=== PATIENT | female | born 1950 | race Caucasian/White ===

== ENCOUNTER 2018-03-11 14:35 | Inpatient (IN) | payer OTHER ==
[~2018-03-11] VITALS: Ht 162.6 cm; Wt 61.3 kg
[2018-03-11] MEDS ORDERED: ASPIRIN 325 MG TAB PO ONE (15:30)
[2018-03-11 15:32] LABS: BASOPHILS # (AUTO) 0.1 (0.0-0.1); BASOPHILS % 0.6 % (0.0-1.0); EOSINOPHILS # (AUTO) 0.1 (0.0-0.4); EOSINOPHILS % 0.8 % (0.0-6.0); HEMATOCRIT 41.1 % (34.2-44.1); HEMOGLOBIN 13.9 g/dL (12.0-16.0); LYMPHOCYTES # (AUTO) 2.6 (1.0-3.2); LYMPHOCYTES % 29.6 % (18.0-39.1); MEAN CORPUSCULAR HEMOGLOBIN 27.9 pg (28-32); MEAN CORPUSCULAR HGB CONC 33.8 g/dL (31-35); MEAN CORPUSCULAR VOLUME 82.4 fL (81-99); MONOCYTES # (AUTO) 0.5 (0.2-0.8); MONOCYTES % 6.1 % (4.4-11.3); NEUTROPHILS # (AUTO) 5.5 (2.1-6.9); NEUTROPHILS % 62.7 % (38.7-80.0); PLATELET COUNT 260 x10e3/uL (140-360); RED BLOOD COUNT 4.99 x10e6/uL (3.6-5.1); RED CELL DISTRIBUTION WIDTH 13.2 % (11.7-14.4)
[2018-03-11 15:44] LABS: ALBUMIN 3.3 g/dL (3.5-5.0); ALBUMIN/GLOBULIN RATIO 0.9 (0.8-2.0); ANION GAP 15.7 mmol/L (8-16); CALCIUM 10.2 mg/dL (8.4-10.2); CHOL/HDL RATIO 7.1 (3.0-3.6); CREATININE, SERUM 1.2 mg/dL (0.57-1.11); POTASSIUM 4.7 mmol/L (3.5-5.1)
--- NOTE | 2018-03-11 16:02 | Diagnostic Imaging Report ---
PROCEDURE: A single AP view of the chest. COMPARISON: None. INDICATIONS: LEFT SIDE CHEST PAIN FINDINGS: Lines/tubes: None. Lungs: The lungs are well inflated and clear. There is no evidence of pneumonia or pulmonary edema. Pleura: There is no pleural effusion or pneumothorax. Heart and mediastinum: Cardiac silhouette is unremarkable. Pulmonary vasculature is normal. Bones: No acute bony abnormality. IMPRESSION: 1. No acute cardiopulmonary abnormalities. Chilo Hinson M.D. Dictated by: Chilo Hinson M.D. on 03/11/2018 at 16:06 Electronically approved by: Chilo Hinson M.D. on 03/11/2018 at 16:06
[2018-03-11] MEDS ORDERED: SODIUM CHLORIDE 0.9% 1000ML 1,000 ML IV ONE (16:30)
[2018-03-11] MEDS ORDERED: INSULIN REGULAR, HUMAN 100 UNIT/1 ML 3ML VIAL IV ONE (16:30)
[2018-03-11] MEDS ORDERED: KETOROLAC TROMETHAMINE 30 MG/ML VIAL IV STA (16:31)
[2018-03-11] MEDS ORDERED: DIAZEPAM INJ 5 MG/ML 2 ML IV ONE (16:45)
[2018-03-11] MEDS ORDERED: ENALAPRILAT IV INJ 1.25 MG/ML VIAL IV STA (17:29)
[2018-03-11] MEDS ORDERED: ENALAPRILAT IV INJ 1.25 MG/ML VIAL ONE ×2 (17:40→18:18)
[2018-03-11] MEDS ORDERED: DEXTROSE 50% SYRINGE 50 ML IV PRN (17:45)
[2018-03-11] MEDS ORDERED: ONDANSETRON HCL INJ 2 MG/ML VIAL IV PRN (17:45)
[2018-03-11] MEDS ORDERED: SODIUM CHLORIDE FLUSH 10 ML SYR INJ PRN (17:45)
[2018-03-11] MEDS ORDERED: DIAZEPAM 2 MG TAB PO ONE (17:45)
[2018-03-11] MEDS ORDERED: ASPIRIN 81 MG CHEW TAB PO ONE (17:45)
[2018-03-11] MEDS ORDERED: DIAZEPAM 5 MG TAB PO SCH (17:45)
[2018-03-11] MEDS ORDERED: MORPHINE SULFATE 2 MG/ML SYR IV PRN (18:00)
[2018-03-11] MEDS ORDERED: LABETALOL HCL 5 MG/ML 20ML VIAL IV ONE (18:00)
[2018-03-11] MEDS: FAMOTIDINE 20 MG/2 ML VIAL IV SCH (18:24)
[2018-03-11] MEDS: FAMOTIDINE 20 MG TAB PO SCH (18:24)
--- NOTE | 2018-03-11 18:28 | Diagnostic Imaging Report ---
PROCEDURE:CT ANGIOGRAPHY CHEST WITHOUT AND WITH CONTRAST COMPARISON:None. INDICATIONS:RULE OUT DISSECTION, CHEST AND BACK PAIN TECHNIQUE:Multidetector CT scanning of the chest was performed from the level of the thoracic inlet to the upper abdomen before and after intravenous administration of 100 cc of Isovue 370. No oral contrast was given. Coronal and sagittal multiplanar reformations were obtained. DISCUSSION: Chest:3-4 mm pulmonary nodule in the left upper lobe (series 7, image 13, and sagittal image 85). 2 mm pulmonary nodule in the lateral left upper lobe (sagittal image 89). No other pulmonary nodules. No masses or consolidation. Linear opacities in the lateral left lower lobe, likely representing subsegmental atelectasis or scarring (series 7, image 41). Thyroid is unremarkable. Heart size is normal. No pericardial effusion. Minimal atherosclerotic calcification of the coronary arteries and thoracic aortic arch. The left vertebral artery has a separate origin from the aorta. Otherwise, normal aortic arch branching pattern. Lymph nodes: A borderline enlarged right upper paratracheal lymph node measuring 1.0 cm in short axis (series 2, image 19) has a normal fatty hilum. No axillary, mediastinal, or hilar adenopathy Aorta and proximal branches: The thoracic aorta is normal without evidence of aneurysm or dissection. There is no evidence of intramural or periaortic hematoma. There is preservation of the sinotubular junction. The visualized abdominal aorta is normal. The celiac trunk is patent. Measurements of the aorta are as follows: 2.7 cm at the level of the aortic root, 3.0 cm in the mid ascending aorta, 2.6 cm in the mid aortic arch, 2.5 cm in the proximal descending aorta, 2.3 cm in the mid descending aorta, 2.1 cm at the level of the diaphragmatic hiatus, 2.1 cm at the level of the celiac trunk. Abdomen: Visualized portions of the abdomen showed no abnormalities in the liver, spleen, pancreas. 5 mm calcification in the superior pole of the left kidney (series 2, image 55). 1.1 x 0.9 cm low density nodule in the anterior limb of the left adrenal gland (series 2, image 57), with the measured density of less than 10 HU on noncontrast exam. Bones and soft tissues: No aggressive lytic lesions. Degenerative changes are present in the thoracic spine. Soft tissues are unremarkable. CONCLUSION: 1. Essentially unremarkable CT angiogram of the chest with and without contrast. No evidence of dissection or aneurysmal dilation. 2. 2 and 3-4 mm pulmonary nodules in the left upper lobe. This is a low risk patient, no further followup is indicated per [employer] 2017 guidelines. 3. 5 mm calcification in the superior pole of the left kidney may represent a cortical calcification or nonobstructing calculus. 4. 1.1 cm left adrenal benign, lipid rich adenoma. No further diagnostic or followup imaging is indicated. Chilo Hinson M.D. Dictated by: Chilo Hinson M.D. on 03/11/2018 at 18:33 Electronically approved by: Chilo Hinson M.D. on 03/11/2018 at 18:33
[2018-03-11] MEDS ORDERED: CLONIDINE HCL 0.2 MG TAB PO ONE (18:45)
[2018-03-11] MEDS ORDERED: CLONIDINE HCL0.2 MG PO (18:57)
[2018-03-11] MEDS ORDERED: ESCITALOPRAM OX10 MG (18:57)
[2018-03-11] MEDS ORDERED: ASPIRIN EC81 MG PO (18:57)
[2018-03-11] MEDS ORDERED: METFORMIN HCL500 M1 PO (18:57)
[2018-03-11] MEDS ORDERED: ATORVASTATIN CA80 MG PO (18:57)
[2018-03-11] MEDS ORDERED: LISINOPRIL40 MG (18:57)
[2018-03-11] MEDS ORDERED: BACLOFEN10 MG PO (18:57)
[2018-03-11] MEDS ORDERED: ESCITALOPRAM OX20 MG PO (18:57)
[2018-03-11] MEDS ORDERED: FLUTICASONE PRO16 GM INH (18:57)
[2018-03-11] MEDS ORDERED: TEMAZEPAM15 MG PO (18:57)
[2018-03-11] MEDS ORDERED: GABAPENTIN600 MG PO (18:57)
[2018-03-11] MEDS ORDERED: CLONIDINE HCL 0.1 MG TAB PO PRN (19:15)
[2018-03-11] MEDS ORDERED: CLONIDINE HCL 0.2 MG TAB PO PRN (19:30)
[2018-03-11] MEDS: INSULIN REGULAR, HUMAN 100 UNIT/1 ML 3ML VIAL SQ SCH (21:00)
[2018-03-11] MEDS ORDERED: NIFEDIPINE 10 MG CAP PO STA (21:10)
[2018-03-11] MEDS ORDERED: NIFEDIPINE CR 30 MG TAB PO SCH (21:30)
[2018-03-11] MEDS: SIMVASTATIN 40 MG TAB PO SCH (22:26)
[2018-03-11] MEDS ORDERED: IOPAMIDOL 370 MG/ML 200 ML INFUS..BTL INJ ONE (22:52)
[2018-03-11] MEDS ORDERED: SODIUM CHLORIDE 0.9% 100 ML ONE (22:53)
[2018-03-11] MEDS ORDERED: NITROGLYCERIN 2% OINT 1 GM PKT TOP ONE (23:00)
[2018-03-12] VITALS (8 sets, daily range): BP systolic 146–159; BP diastolic 65–70
[2018-03-12 02:03] LABS: CREATINE KINASE MB 0.7 ng/mL (0-5.0)
[2018-03-12] MEDS: FAMOTIDINE 20 MG TAB PO SCH ×2 (05:44→16:45)
[2018-03-12] MEDS: FAMOTIDINE 20 MG/2 ML VIAL IV SCH (05:44)
[2018-03-12 05:54] LABS: BASOPHILS % 0.6 % (0.0-1.0); EOSINOPHILS # (AUTO) 0.1 (0.0-0.4); EOSINOPHILS % 1.9 % (0.0-6.0); HEMATOCRIT 37.5 % (34.2-44.1); HEMOGLOBIN 12.3 g/dL (12.0-16.0); LYMPHOCYTES # (AUTO) 3.3 (1.0-3.2); LYMPHOCYTES % 45.1 % (18.0-39.1); MEAN CORPUSCULAR HGB CONC 32.8 g/dL (31-35); MEAN CORPUSCULAR VOLUME 85.4 fL (81-99); MONOCYTES # (AUTO) 0.5 (0.2-0.8); MONOCYTES % 7.2 % (4.4-11.3); NEUTROPHILS # (AUTO) 3.3 (2.1-6.9); NEUTROPHILS % 44.9 % (38.7-80.0); PLATELET COUNT 213 x10e3/uL (140-360); RED BLOOD COUNT 4.39 x10e6/uL (3.6-5.1); RED CELL DISTRIBUTION WIDTH 13.2 % (11.7-14.4)
[2018-03-12] MEDS ORDERED: ZESTRIL10 MG PO (06:08)
[2018-03-12 06:15] LABS: CREATINE KINASE MB 0.8 ng/mL (0-5.0)
[2018-03-12 06:33] LABS: ANION GAP 11.5 mmol/L (8-16); CALCIUM 9.2 mg/dL (8.4-10.2); CREATININE, SERUM 1.04 mg/dL (0.57-1.11); POTASSIUM 4.5 mmol/L (3.5-5.1)
--- NOTE | 2018-03-12 06:36 | Diagnostic Imaging Report ---
CHEST SINGLE (PORTABLE), 03/12/2018 7:00 AM Technique: CHEST SINGLE (PORTABLE) Comparison: None available. Clinical history: Chest pain Findings: Probable left lung calcified granulomas. Otherwise unremarkable portable appearance of the heart, mediastinum, lungs and pleural spaces. Impression: 1. Lines/Tubes: None 2. No acute abnormality. Signed by: Dr Aimee Ibrahim MD on 03/12/2018 6:33 AM
[2018-03-12] MEDS: INSULIN REGULAR, HUMAN 100 UNIT/1 ML 3ML VIAL SQ SCH ×4 (08:00→21:00)
[2018-03-12] MEDS: ASPIRIN 81 MG ENTERIC COATED PO SCH (08:00)
[2018-03-12] MEDS ORDERED: BACLOFEN 10 MG TAB PO PRN (08:45)
[2018-03-12] MEDS ORDERED: MORPHINE SULFATE INJ 4 MG/ML INJ IV PRN (08:45)
[2018-03-12] MEDS ORDERED: NITROGLYCERIN 0.2 MG/HR PATCH TOP SCH (09:00)
[2018-03-12] MEDS: METOPROLOL TARTRATE 50 MG TAB PO SCH ×2 (09:57→16:45)
[2018-03-12] MEDS: GLIPIZIDE 5 MG TAB ER PO SCH (09:57)
[2018-03-12] MEDS: ESCITALOPRAM OXALATE 10 MG TAB PO SCH (09:57)
[2018-03-12] MEDS: LISINOPRIL 10 MG TAB PO SCH ×2 (09:58→16:45)
[2018-03-12] MEDS: GABAPENTIN 300 MG CAP PO SCH ×2 (09:58→16:45)
[2018-03-12] MEDS: NIFEDIPINE CR 30 MG TAB PO SCH (09:58)
[2018-03-12] MEDS ORDERED: ARTIFICIAL TEARS (OPTH) 15 ML BTL OP PRN (10:00)
[2018-03-12] MEDS: ACETAMINOPHEN 325 MG TAB PO PRN (12:19)
[2018-03-12] MEDS ORDERED: REGADENOSON 0.4 MG/5 ML SYR IV ONE (12:30)
[2018-03-12] MEDS ORDERED: TEMAZEPAM 15 MG CAP PO SCH (21:00)
[2018-03-12] MEDS ORDERED: ATORVASTATIN 40 MG TAB PO SCH (21:00)
--- NOTE | 2018-03-12 21:04 | Consultation ---
DATE OF CONSULTATION: March 12, 2018 CARDIOLOGY CONSULT NOTE REASON FOR CONSULTATION: Chest pain. CHIEF COMPLAINT: Chest pain. HPI: Patient is a 67-year-old white female with history of diabetes, hypertension, hyperlipidemia, who presents with 2-week history of left-sided chest pain radiating to her left shoulder and back. Pain is intermittent without any exacerbating or relieving factors, feels like a pressure and squeezing in her chest without associated shortness of breath, nausea, vomiting or diaphoresis. Pain is not associated with exertion and is not relieved by rest. Patient has no previous history of cardiac issues including CAD. Patient is never a smoker, does not drink or use drugs. PAST MEDICAL HISTORY: Hypertension, hyperlipidemia, diabetes, osteoarthritis, fibromyalgia. REVIEW OF SYSTEMS: A 10-point complete review of system was performed then was negative other than as mentioned in the HPI. FAMILY HISTORY: Patient's mother had history of bypass surgery in her 60s. SOCIAL HISTORY: Patient does not smoke, drink or use drugs. EXAM VITALS: Temperature 97.7, heart rate 68, respiratory rate 18, blood pressure 152/67, satting 96% on room air. EYES: Conjunctivae clear. EARS, NOSE, MOUTH, AND THROAT: Normal mucosa. No pallor or bleeding. NECK: No jugular venous distention. MSK: Normal muscle tone and strength. No atrophy or abnormal movements. EXTREMITIES: No clubbing or cyanosis. No venostasis changes or ulcers. GENERAL: Well-developed, well-nourished white female. CARDIOVASCULAR: PMI nondisplaced. Regular S1 and S2. No murmur, rubs or gallop. Normal carotid pulses. Palpable femoral pulses. Palpable pedal pulses. No peripheral edema or varicosities. RESPIRATORY: No respiratory distress. Clear to auscultation bilaterally. ABDOMEN: Soft, nontender, nondistended. No masses, no hepatosplenomegaly. NEURO/PSYCH: Alert and oriented to person, place, and time. Normal affect. MEDICATIONS 1. Metoprolol tartrate 50 mg twice a day. 2. Gabapentin 600 mg twice a day. 3. Lisinopril 10 mg twice a day. 4. Famotidine 20 mg q.12 h. 5. Nifedipine 30 mg daily. 6. Glipizide 5 mg daily. 7. Lexapro 20 mg daily. 8. Aspirin 81 mg daily. 9. Simvastatin 40 mg at bedtime. 10. Hydralazine 25 mg q.4 h p.r.n. for elevated blood pressure. 11. Nitroglycerin sublingual p.r.n. LABS: All lab data reviewed. Hemoglobin 13.9. Troponins remain negative. Elevated blood glucoses as high as 284. BNP is 91.5. IMAGING: Chest x-ray without any significant cardiopulmonary abnormalities. EKG: Normal sinus rhythm. TELEMETRY: Normal sinus rhythm. No significant arrhythmias. CARDIAC STUDIES: Myocardial perfusion imaging performed earlier today reviewed shows no significant perfusion defect and a normal LV function. ASSESSMENT AND PLAN 1. Chest pain. 2. Uncontrolled hypertension. PLAN: Patient's chest pain has both typical and atypical features. Given her risk factors, we decided to risk stratify with nuclear stress test. Nuclear stress test shows normal perfusion of the LV myocardium with normal LV function. Patient already ruled out for acute HI with serial negative troponins and normal EKG. Given above findings, patient is okay to be discharged home from a cardiovascular standpoint. She is to continue her home blood pressure medicines as described above. She needs better blood pressure control as an outpatient, and desired, she can call our office and make an appointment for followup after discharge. Thank you for this consult. Job#: [id number]
[2018-03-12] MEDS: SIMVASTATIN 40 MG TAB PO SCH (21:30)
[2018-03-13] VITALS (7 sets, daily range): BP systolic 150–207; BP diastolic 72–90
[2018-03-13] MEDS: ACETAMINOPHEN 325 MG TAB PO PRN ×2 (05:00→12:24)
[2018-03-13] MEDS: HYDRALAZINE HCL 25 MG TAB PO PRN ×2 (05:06→09:54)
[2018-03-13] MEDS: FAMOTIDINE 20 MG TAB PO SCH (05:29)
[2018-03-13] MEDS: GABAPENTIN 300 MG CAP PO SCH (07:45)
[2018-03-13] MEDS: ASPIRIN 81 MG ENTERIC COATED PO SCH (07:45)
[2018-03-13] MEDS: LISINOPRIL 10 MG TAB PO SCH (07:45)
[2018-03-13] MEDS: ESCITALOPRAM OXALATE 10 MG TAB PO SCH (07:45)
[2018-03-13] MEDS: GLIPIZIDE 5 MG TAB ER PO SCH (07:45)
[2018-03-13] MEDS: METOPROLOL TARTRATE 50 MG TAB PO SCH (07:45)
[2018-03-13] MEDS: NIFEDIPINE CR 30 MG TAB PO SCH (07:45)
[2018-03-13] MEDS: INSULIN REGULAR, HUMAN 100 UNIT/1 ML 3ML VIAL SQ SCH ×2 (07:45→12:00)
[2018-03-13] MEDS ORDERED: ALPRAZOLAM 0.25 MG TAB PO ONE (09:00)
--- NOTE | 2018-03-13 09:11 | Discharge Summary ---
FILM CLEANER: Dr. Huan Sotelo FILM CLEANER: Dr. Linda Rodriguez FINAL DIAGNOSES 1. Hypertensive crisis with headaches. 2. Chest pain. Patient had a negative stress test. Negative CTA of the chest. 3. Anxiety disorder. Medications on discharge and instructions as follows: 1. Discontinue lisinopril 10 mg and increase it to lisinopril 20 mg twice a day. 2. Stop clonidine. 3. Add metoprolol tartrate 50 mg twice a day. 4. Nifedipine XL 30 mg at bedtime. 5. Xanax 0.25 mg q.6 h. p.r.n. for anxiety. SUMMARY: A 67-year-old female came in with chest pain and hypertensive crisis. Systolic blood pressure greater than 210-220. Patient was on clonidine with rebound hypertension. Patient was also very anxious. Chest pain is atypical. Patient initiated on medication adjustment. Blood pressure much improved. Patient is stable now. Chest pain resolved. She is anxious. Blood pressure remained elevated with anxiety, but overall stable from previous readings. The patient did have a negative stress test. CTA of the chest shows some insignificant pulmonary nodules. No further followup recommended. The patient is stable. She will go home with the following instructions as the above. She will see Dr. Sotelo within a week for repeat checking of her blood pressure. The patient is stable. Resume home medications. with the changes as mentioned above. Job#: [id number] SYLVAIN
[2018-03-13] MEDS ORDERED: HYDRALAZINE HCL 20 MG/ML VIAL IV ONE (10:00)
--- NOTE | 2018-03-13 10:14 | Progress Note ---
DATE: CARDIOLOGY PROGRESS NOTE SUBJECTIVE: Patient complains of a headache and denies shortness of breath, chest pain or palpitations. Blood pressure quite elevated this morning. OBJECTIVE VITAL SIGNS: Temperature 98.4, pulse 88, respiratory rate 18, blood pressure 207/90, oxygen saturation 96% on room air. CARDIOVASCULAR MEDICATIONS 1. Nifedipine 30 p.o. daily. 2. Metoprolol 50 mg p.o. b.i.d. 3. Lisinopril 10 mg p.o. b.i.d. 4. Aspirin 81 p.o. daily. 5. Atorvastatin 80 p.o. at night. LABS: No new labs today. PHYSICAL EXAMINATION GENERAL: Alert and oriented times 3. Resting comfortably in bed. Does not appear to be in any acute distress. LUNGS: Clear to auscultation throughout. No wheezing. No rhonchi or crackles noted. CARDIOVASCULAR: Regular rate and rhythm. ABDOMEN: Soft and nontender. EXTREMITIES: No edema. Two plus pedal pulses. ASSESSMENT AND PLAN 1. Atypical chest pain, resolved now. 2. Uncontrolled hypertension. 3. Anxiety and nervousness. PLAN: Initiate antianxiety and antidepressant. Up-titrate antihypertensive today. IV option given. Hold discharge for now until blood pressure is a lot better controlled. Patient to follow up with outpatient quality tester with [facility] in the next week. Stress test completed yesterday shows normal perfusion of the left myocardium with normal LV function. Cardiac enzymes have ruled out acute MN. Will continue to follow this patient very closely. DICTATED BY ODESSA KO NP Job#: [id number] SYLVAIN
[2018-03-13] MEDS ORDERED: NIFEDIPINE CR 30 MG TAB PO SCH (10:30)
[2018-03-13] MEDS ORDERED: LISINOPRIL 20 MG TAB PO SCH (10:30)
[2018-03-13] MEDS ORDERED: LISINOPRIL2.5 MG PO (12:38)
[2018-03-13] MEDS ORDERED: NIFEDIPINE ER30 M1 PO (12:39)
[2018-03-13] MEDS ORDERED: METOPROLOL TART50 MG PO (12:39)
[2018-03-13] MEDS ORDERED: XANAX0.25 MG PO (12:40)
[2018-03-13] MEDS ORDERED: LISINOPRIL 10 MG TAB PO SCH (17:00)
[2018-03-14] MEDS ORDERED: NIFEDIPINE CR 30 MG TAB PO SCH (09:00)
== END 2018-03-13 13:05 | disposition home or self-care (01) | DRG 305 ==
LOC: FSED 14:35 → ERHOLD 17:36 → MED/SURG 03-12 01:17
PROVIDERS: ADMIT Internal Medicine; ATTEND Internal Medicine
DX: I16.9 Hypertensive crisis, unspecified (principal); I10 Essential (primary) hypertension; E11.65 Type 2 diabetes mellitus with hyperglycemia; E78.5 Hyperlipidemia, unspecified; Z85.038 Personal history of other malignant neoplasm of large intestine; R07.89 Other chest pain; F41.9 Anxiety disorder, unspecified; R45.0 Nervousness; R51 Headache
CPT/HCPCS: 36415; 71045; 71275; 78452; 80048; 80053; 80061; 82550; 82553; 82948; 83036; 83880; 84443; 84484; 85025; 93005; 93017; 99284; A9502; J1885; J2270; J2405; J3360; J7030; J7050; Q9967

== ENCOUNTER 2018-08-13 21:49 | Inpatient (IN) | payer OTHER ==
[~2018-08-13] VITALS: Ht 162.6 cm; Wt 59.5 kg
[~2018-08-13 21:49] MED LIST: ASPIRIN EC81 MG PO; ATORVASTATIN CA80 MG PO; BACLOFEN10 MG PO; CLONIDINE HCL0.2 MG PO; ESCITALOPRAM OX10 MG; ESCITALOPRAM OX20 MG PO; FLUTICASONE PRO16 GM INH; GABAPENTIN600 MG PO; LISINOPRIL2.5 MG PO; LISINOPRIL40 MG; METFORMIN HCL500 M1 PO; METOPROLOL TART50 MG PO; NIFEDIPINE ER30 M1 PO; TEMAZEPAM15 MG PO; XANAX0.25 MG PO; ZESTRIL10 MG PO
--- OUTSIDE RECORDS SUMMARY | 2018-08-13 21:51 | XMS REPORT | Clinical Summary ---
Author Author MAGDY [facility] Address Unknown Phone Unavailable Care Team Providers Care Orange Peel Operator Name Role Phone Sharpless PCP Allergies No Known Allergies Medications End Date Status Medication Sig Dispensed Refills Start Date Active aspirin-calcium carbonate Take 81 mg by 0 81 mg-300 mg calcium(777 mouth. 8 mg) Tab Active atorvastatin (LIPITOR) 80 80 mg. 0 MG tablet 8 Active escitalopram oxalate Take 20 mg by 0 (LEXAPRO) 20 MG tablet mouth. 8 Active gabapentin (NEURONTIN) TAKE ONE 0 600 MG tablet TABLET BY 8 MOUTH THREE TIMES DAILY FOR 7 DAYS, AND THEN ONE TABLET 4 TIMES DAILY. Active insulin lispro Inject 20 0 protamine-insulin lispro Units 8 (HUMALOG 75-25) 100 subcutaneousl unit/mL (75-25) Susp y. injection Active lidocaine HCl 4 % Crea Apply small 0 amount to 8 affected area daily as needed Active lisinopril Take 40 mg by 0 (PRINIVIL,ZESTRIL) 40 MG mouth. 8 tablet Active meclizine (ANTIVERT) 12.5 Take 12.5 mg 0 mg tablet by mouth. 6 Active metFORMIN (GLUCOPHAGE-XR) Take 500 mg 0 500 MG 24 hr by mouth 2 8 tabletIndications: type 2 (two) times diabetes mellitus daily . Active ondansetron (ZOFRAN) 4 MG Take 4 mg by 0 tablet mouth. 8 Active temazepam (RESTORIL) 15 Take 15 mg by 0 mg capsule mouth. 8 03/21/2019 Active cloNIDine HCl (CATAPRES) Take 1 tablet 60 tablet 1 0.2 MG tablet (0.2 mg 8 total) by mouth 2 (two) times daily. 03/21/2019 Active metoprolol (LOPRESSOR) 25 Take 1 tablet 60 tablet 1 MG tablet (25 mg total) 8 by mouth 2 (two) times daily. 04/20/2018 lidocaine (LIDODERM) 5 % Place 1 patch 30 patch 0 patch onto the skin 8 daily for 30 days Remove & Discard patch within 12 hours or as directed by . Active Problems Problem Noted Date Chest pain, unspecified type 03/19/2018 Encounters Care Team Description Date Type Specialty 03/20/2018 Orders Only General Internal Medicine Dennis Lewis MD Rivera, Carlos Roberto, MD Chest pain, unspecified type (Primary Dx) 03/19/2018 Emergency General Internal Medicine - 03/21/2018 after 08/12/2017 Social History Date Tobacco Use Types Packs/Day Years Used Never Smoker Smokeless Tobacco: Never Used Alcohol Use Drinks/Week oz/Week Comments No Sex Assigned at Date Recorded Not on file Industry Job Start Date Occupation Not on file Not on file Not on file Travel End Travel History Travel Start No recent travel history available. Last Filed Vital Signs Time Taken Vital Sign Reading 03/21/2018 11:27 AM CDT Blood Pressure 136/63 03/21/2018 11:27 AM CDT Pulse 70 03/21/2018 11:27 AM CDT Temperature 36.3 C (97.3 F) 03/21/2018 11:27 AM CDT Respiratory Rate 18 03/21/2018 11:27 AM CDT Oxygen Saturation 97% - Inhaled Oxygen - Concentration 03/21/2018 6:00 AM CDT Weight 58.2 kg (128 lb 6 oz) 03/20/2018 1:29 AM CDT Height 162.6 cm (5' 4") 03/21/2018 6:00 AM CDT Body Mass Index 22.04 Plan of Treatment Not on file Procedures Comments Procedure Name Priority Date/Time Associated Diagnosis RHYTHM STRIP - SCAN 03/23/2018 12:00 PM CDT POCT-GLUCOSE METER Routine 03/21/2018 12:39 PM CDT POCT-GLUCOSE METER Routine 03/21/2018 6:48 AM CDT ECG 12-LEAD Routine 03/21/2018 6:32 AM CDT Procedure Note - Interface, External Ris In - 03/21/2018 6:33 AM CDT Ventricula r Rate 68 BPM Atrial Rate 68 BPM P-R Interval 158 ms QRS Duration 94 ms Q-T Interval 438 ms QTC Calculatio n(Bazett) 465 ms P Hilbert 67 degrees R Hilbert 36 degrees T Hilbert 106 degrees Normal sinus rhythm T wave abnormalit y, consider lateral ischemia Abnormal ECG When compared with ECG of 8 06:32, No significan t change was found ECG 12-LEAD Routine 03/21/2018 6:32 AM CDT ECG 12-LEAD Routine 03/21/2018 6:32 AM CDT Procedure Note - Interface, External Ris In - 03/21/2018 6:33 AM CDT Ventricula r Rate 68 BPM Atrial Rate 68 BPM P-R Interval 158 ms QRS Duration 90 ms Q-T Interval 442 ms QTC Calculatio n(Bazett) 469 ms P Hilbert 70 degrees R Hilbert 62 degrees T Hilbert 103 degrees Normal sinus rhythm T wave abnormalit y, consider lateral ischemia Abnormal ECG When compared with ECG of 8 06:26, ST elevation now present in Inferior leads MAGNESIUM Routine 03/21/2018 5:17 AM CDT BASIC METABOLIC PANEL (7) Routine 03/21/2018 5:17 AM CDT POCT-GLUCOSE METER Routine 03/20/2018 8:21 PM CDT POCT-GLUCOSE METER Routine 03/20/2018 5:46 PM CDT TROPONIN I Routine 03/20/2018 4:05 PM CDT POCT-GLUCOSE METER Routine 03/20/2018 11:29 AM CDT POCT-GLUCOSE METER Routine 03/20/2018 7:35 AM CDT ECG 12-LEAD Routine 03/20/2018 6:26 AM CDT Procedure Note - Interface, External Ris In - 03/20/2018 6:27 AM CDT Ventricula r Rate 89 BPM Atrial Rate 89 BPM P-R Interval 148 ms QRS Duration 92 ms Q-T Interval 390 ms QTC Calculatio n(Bazett) 474 ms P Hilbert 72 degrees R Hilbert 86 degrees T Hilbert 87 degrees Normal sinus rhythm Nonspecifi c ST abnormalit y Abnormal ECG When compared with ECG of 06:26, No significan t change was found ECG 12-LEAD Routine 03/20/2018 6:26 AM CDT Procedure Note - Interface, External Ris In - 03/20/2018 6:27 AM CDT Ventricula r Rate 89 BPM Atrial Rate 89 BPM P-R Interval 146 ms QRS Duration 92 ms Q-T Interval 404 ms QTC Calculatio n(Bazett) 491 ms P Hilbert 74 degrees R Hilbert 81 degrees T Hilbert 119 degrees Normal sinus rhythm Right atrial enlargemen t Nonspecifi c ST and T wave abnormalit y Prolonged QT Abnormal ECG No previous ECGs available ECG 12-LEAD STAT 03/20/2018 6:26 AM CDT URINALYSIS W/ MICROSCOPIC Routine 03/20/2018 6:14 AM CDT CBC W/PLT COUNT & AUTO Routine 03/20/2018 DIFFERENTIAL 5:51 AM CDT CBC W/PLT COUNT & AUTO Routine 03/20/2018 DIFFERENTIAL 5:51 AM CDT HEPATIC FUNCTION PANEL Routine 03/20/2018 5:51 AM CDT PROTHROMBIN TIME/INR Routine 03/20/2018 5:51 AM CDT MAGNESIUM Routine 03/20/2018 5:51 AM CDT LIPID PANEL Routine 03/20/2018 5:51 AM CDT BASIC METABOLIC PANEL (7) Routine 03/20/2018 5:51 AM CDT POCT-GLUCOSE METER Routine 03/20/2018 3:10 AM CDT XR CHEST 1 VIEW STAT 03/19/2018 PORTABLE/BEDSIDE 8:43 PM CDT CBC W/PLT COUNT & AUTO STAT 03/19/2018 DIFFERENTIAL 6:43 PM CDT B-TYPE NATRIURETIC FACTOR STAT 03/19/2018 (BNP) 6:43 PM CDT PT/APTT STAT 03/19/2018 6:43 PM CDT CBC W/PLT COUNT & AUTO STAT 03/19/2018 DIFFERENTIAL 6:43 PM CDT TROPONIN I STAT 03/19/2018 6:43 PM CDT MAGNESIUM STAT 03/19/2018 6:43 PM CDT BASIC METABOLIC PANEL (7) STAT 03/19/2018 6:43 PM CDT ECG 12-LEAD Routine 03/19/2018 6:23 PM CDT after 08/12/2017 Results * RHYTHM STRIP - SCAN (03/23/2018 12:00 PM CDT) Narrative Performed At * POC-Glucose meter (03/21/2018 12:39 PM CDT) Only the most recent of 7 results within the time period is included. POC-Glucose Meter 168 (H)Comment: TESTED AT 70 - 110 mg/dL [facility] [address] [facility] [id number] Specimen Blood Performing Organization Address City/State/Zipcode Phone Number [facility] [address] [place] [address] MEDICAL CENTER * ECG 12 lead (03/21/2018 6:32 AM CDT) Only the most recent of 3 results within the time period is included. Narrative Performed At Ventricular Rate 68 BPM GE MUSE Atrial Rate 68 BPM P-R Interval 158 ms QRS Duration 90 ms Q-T Interval 442 ms QTC Calculation(Bazett) 469 ms P Hilbert 70 degrees R Hilbert 62 degrees T Hilbert 103 degrees Normal sinus rhythm T wave abnormality, consider lateral ischemia Abnormal ECG When compared with ECG of 20-MAR-2018 06:26, ST elevation now present in Inferior leads Confirmed by MD STARKEY JOSEPH P ([id number]) on 03/22/2018 7:49:24 AM Procedure Note Interface, External Ris In - 03/22/2018 7:49 AM CDT Ventricular Rate 68 BPM Atrial Rate 68 BPM P-R Interval 158 ms QRS Duration 90 ms Q-T Interval 442 ms QTC Calculation(Bazett) 469 ms P Hilbert 70 degrees R Hilbert 62 degrees T Hilbert 103 degrees Normal sinus rhythm T wave abnormality, consider lateral ischemia Abnormal ECG When compared with ECG of 20-MAR-2018 06:26, ST elevation now present in Inferior leads Confirmed by MD STARKEY JOSEPH P ([id number]) on 03/22/2018 7:49:24 AM Performing Organization Address City/State/[facility] Phone Number [facility] * Magnesium (03/21/2018 5:17 AM CDT) Only the most recent of 3 results within the time period is included. Magnesium 1.6 1.6 - 2.6 mg/dL [facility] Specimen Blood Performing Organization Address City/[facility] Phone Number [facility] [address] [place] [address] [phone] [place] [address] * Basic metabolic panel (03/21/2018 5:17 AM CDT) Only the most recent of 3 results within the time period is included. Sodium 138 136 - 145 meq/L [facility] Potassium 4.0 3.5 - 5.1 meq/L [facility] Chloride 108 (H) 98 - 107 meq/L [facility] CO2 21 (L) 22 - 29 meq/L [facility] BUN 30 (H) 7 - 21 mg/dL [facility] Creatinine 1.04 0.57 - 1.25 mg/dL [facility] Glucose 190 (H) 70 - 105 mg/dL [facility] Calcium 8.8 8.4 - 10.2 mg/dL [facility] EGFR 53Comment: ESTIMATED GFR IS mL/min/1.73 sq m [facility] NOT ACCURATE CREATININE [facility] CLEARANCE IN PREDICTING GLOMERULAR FILTRATION RATE. ESTIMATED GFR IS NOT APPLICABLE FOR DIALYSIS PATIENTS. Specimen Blood Performing Organization Address City/[facility] Phone Number [facility] [address] [place], [place] [phone] [facility] * Troponin I (03/20/2018 4:05 PM CDT) Only the most recent of 2 results within the time period is included. Troponin I 0.01 0.00 - 0.03 ng/mL [facility] Specimen Blood - Arm, Right Narrative Performed At Troponin I (TnI) levels must be interpreted in the context of the presenting [facility] symptoms and the clinical findings. Elevated TnI levels indicate myocardial [facility] damage, but are not specific for ischemic heart disease. Elevated TnI levels are seen in patients with other cardiac conditions (including myocarditis and congestive heart failure), and slight TnI elevations occur in patients with other conditions, including sepsis, renal failure, acidosis, acute neurological disease, and persistent tachyarrhythmia. Performing Organization Address [facility] Phone Number [facility] [address] [place], [place] [phone] [facility] * Urinalysis w/ Microscopic (03/20/2018 6:14 AM CDT) Color, UA Yellow [facility] Clarity, UA Clear [facility] Specific Sullivan, UA 1.017 1.001 - 1.035 [facility] pH, UA 6.0 5.0 - 8.0 [facility] Protein, UA 600 mg/dL (A) Negative [facility] Glucose, UA >1000 mg/dL (A) Negative [facility] Ketones, UA 10 mg/dL (A) Negative [facility] Bilirubin, UA Negative Negative [facility] Blood, UA Negative Negative [facility] Nitrite, UA Negative Negative [facility] Leukocytes, UA Negative Negative [facility] Urobilinogen, UA 0.2 0.2 - 1.0 mg/dL [facility] RBC, UA 1 /HPF [facility] WBC, UA 22 /HPF [facility] Mucus Occasional [facility] Squam Epithel, UA 12 /HPF [facility] Hyaline Casts, UA 29 /LPF [facility] Specimen Source Urine, Voided [facility] Specimen Urine - Urine, Voided Performing Organization Address City/State/Zipcode Phone Number [facility] [address] [place] [address] [facility] * CBC with platelet count + automated diff (03/20/2018 5:51 AM CDT) Only the most recent of 2 results within the time period is included. WBC 9.6 3.5 - 10.5 K/L [facility] RBC 5.18 3.93 - 5.22 M/L [facility] Hemoglobin 13.9 11.2 - 15.7 GM/DL [facility] Hematocrit 44.0 34.1 - 44.9 % [facility] MCV 84.9 79.4 - 94.8 fL [facility] MCH 26.8 25.6 - 32.2 pg [facility] MCHC 31.6 (L) 32.2 - 35.5 GM/DL [facility] RDW 13.1 11.7 - 14.4 % [facility] Platelets 285 150 - 450 K/CU MM [facility] MPV 10.0 9.4 - 12.3 fL [facility] nRBC 0 0 - 0 /100 WBC [facility] % Neutros 54 % [facility] % Lymphs 38 % [facility] % Monos 6 % [facility] % Eos 1 % [facility] % Baso 1 % [facility] # Neutros 5.22 1.56 - 6.13 K/L [facility] # Lymphs 3.61 1.18 - 3.74 K/L [facility] # Monos 0.61 (H) 0.24 - 0.36 K/L [facility] # Eos 0.08 0.04 - 0.36 K/L [facility] # Baso 0.05 0.01 - 0.08 K/L [facility] Immature 0 0 - 1 % [facility] Granulocytes-[facility] Specimen Blood Performing Organization Address City/[facility]/Zipcode Phone Number [address] [address] [facility] * Prothrombin time/INR (03/20/2018 5:51 AM CDT) Protime 13.2 11.7 - 14.7 seconds [facility] INR 1.0 <=5.9 [facility] Specimen Blood Narrative Performed At RECOMMENDED COUMADIN/WARFARIN INR THERAPY RANGES [facility] STANDARD DOSE: 2.0 - 3.0 Includes: PROPHYLAXIS for venous thrombosis, [facility] systemic embolization; TREATMENT for venous thrombosis and/or pulmonary embolus. HIGH RISK: Target INR is 2.5-3.5 for patients with mechanical heart valves. Performing Organization Address City/State/Zipcode Phone Number [place] [phone] [place] [address] [facility] * Hepatic function panel (03/20/2018 5:51 AM CDT) Protein, Total 6.3 6.0 - 8.3 gm/dL [facility] Albumin 3.5 3.5 - 5.0 g/dL [facility] Total Bilirubin 0.5 0.2 - 1.2 mg/dL [facility] Bilirubin, Direct 0.2 0.1 - 0.5 mg/dL [facility] Alkaline Phosphatase 94 40 - 150 U/L [facility] AST 10 5 - 34 U/L [facility] ALT 13 6 - 55 U/L [facility] Specimen Blood Performing Organization Address City/[facility] Phone Number [facility] [address] [place] [address] [facility] * Lipid panel (03/20/2018 5:51 AM CDT) Triglycerides 219 mg/dL [facility] Cholesterol 190 mg/dL [facility] HDL 44 mg/dL [facility] LDL Calculated 102 mg/dL [facility] Specimen Blood Narrative Performed At Triglyceride Reference Range: [facility] Low Risk <150 [facility] [id number] High Risk 200-499 Very High Risk>=500 Cholesterol Reference Range: Low Risk <200 [id number] High Risk>240 HDL Cholesterol Reference Range: Low Risk >=60 High Risk <40 LDL Cholesterol Reference Range: Optimal<100 Near [id number] Very High >=190 Performing Organization Address City/[facility] Phone Number [facility] [address] [place] [address] [facility] * XR chest 1 view portable / bedside (03/19/2018 8:43 PM CDT) Narrative Performed At FINAL REPORT [facility] RAD, CHEST, 1 VIEW, NON DEPT INDICATION: chest pain COMPARISON: None TECHNIQUE: Single frontal view of the chest. IMPRESSION: Cardiomediastinal silhouette within normal limits. No overt consolidative or congestive change. No acute osseous abnormality. Signed: Luba Lund MD Report Verified Date/Time:03/19/2018 21:33:48 Reading Location: [address] Reading Room Procedure Note Interface, External Ris In - 03/19/2018 9:36 PM CDT FINAL REPORT RAD, CHEST, 1 VIEW, NON DEPT INDICATION: chest pain COMPARISON: None TECHNIQUE: Single frontal view of the chest. IMPRESSION: Cardiomediastinal silhouette within normal limits. No overt consolidative or congestive change. No acute osseous abnormality. Signed: Luba Lund MD Report Verified Date/Time: 03/19/2018 21:33:48 Reading Location: [address] Reading Room Performing Organization Address City/[facility] Phone Number [facility] * PT/PTT (03/19/2018 6:43 PM CDT) Protime 13.2 11.7 - 14.7 seconds [facility] INR 1.0 <=5.9 [facility] PTT 25.3 22.5 - 36.0 seconds [facility] Specimen Blood - Arm, Left Narrative Performed At RECOMMENDED COUMADIN/WARFARIN INR THERAPY RANGES [facility] STANDARD DOSE: 2.0 - 3.0 Includes: PROPHYLAXIS for venous thrombosis, [facility] systemic embolization; TREATMENT for venous thrombosis and/or pulmonary embolus. HIGH RISK: Target INR is 2.5-3.5 for patients with mechanical heart valves. Performing Organization Address City/State/Zipcode Phone Number [facility] [address] [place] [address] [facility] * B-type Natriuretic Factor (BNP) (03/19/2018 6:43 PM CDT) BNP 50 0 - 100 pg/mL [facility] Specimen Blood - Arm, Left Performing Organization Address City/[facility]/Zipcode Phone Number [facility] [address] [place], [place] [phone] [facility] after 08/12/2017 Insurance Payer Benefit Subscriber ID Type Phone Address Plan / Group [employer] - [employer] TAYLOR xxxxxxxxxxx HMO/POS HMO/POS OPEN ACCESS Advance Directives For more information, please contact: [address] [address] Date Inactivated Comments Code Status Date Activated 03/21/2018 5:25 PM Full Code 03/20/2018 2:15 AM This code status was determined by: Patient
[2018-08-13 23:25] LABS: BASOPHILS # (AUTO) 0.1 (0.0-0.1); BASOPHILS % 0.6 % (0.0-1.0); EOSINOPHILS # (AUTO) 0.2 (0.0-0.4); EOSINOPHILS % 1.6 % (0.0-6.0); HEMATOCRIT 32.9 % (34.2-44.1); HEMOGLOBIN 10.1 g/dL (12.0-16.0); LYMPHOCYTES # (AUTO) 2.3 (1.0-3.2); LYMPHOCYTES % 18.8 % (18.0-39.1); MEAN CORPUSCULAR HEMOGLOBIN 26.5 pg (28-32); MEAN CORPUSCULAR HGB CONC 30.7 g/dL (31-35); MEAN CORPUSCULAR VOLUME 86.4 fL (81-99); MONOCYTES # (AUTO) 0.9 (0.2-0.8); MONOCYTES % 7.8 % (4.4-11.3); NEUTROPHILS # (AUTO) 8.5 (2.1-6.9); NEUTROPHILS % 70.7 % (38.7-80.0); PLATELET COUNT 310 x10e3/uL (140-360); RED BLOOD COUNT 3.81 x10e6/uL (3.6-5.1); RED CELL DISTRIBUTION WIDTH 15.3 % (11.7-14.4)
[2018-08-13] MEDS ORDERED: ALBUTEROL SULF 0.083% NEB SOLN 3 ML NEB NEB STA (23:26)
[2018-08-13 23:29] LABS: INR 0.95; PROTHROMBIN TIME 13.5 seconds (11.9-14.5)
[2018-08-13 23:30] LABS: PARTIAL THROMBOPLASTIN TIME 28.4 seconds (23.8-35.5)
[2018-08-13] MEDS ORDERED: NITROGLYCERIN 2% OINT 1 GM PKT TOP ONE (23:30)
[2018-08-13] MEDS ORDERED: IPRATROPIUM BROMIDE 0.02% 2.5 ML NEB NEB ONE (23:30)
[2018-08-13] MEDS ORDERED: NITROGLYCERIN 2% OINT 1 GM PKT ONE (23:30)
[2018-08-13 23:34] LABS: CLARITY,URINE CLEAR (CLEAR); COLOR,URINE YELLOW (YELLOW)
[2018-08-13 23:35] LABS: BILIRUBIN,URINE NEGATIVE (NEGATIVE); KETONES,URINE NEGATIVE (NEGATIVE); LEUKOCYTE ESTERASE ,URINE NEGATIVE (NEGATIVE); NITRITE,URINE NEGATIVE (NEGATIVE); PROTEIN,URINE DIPSTICK 2+ (NEGATIVE); URINE UROBILINOGEN 0.2 mg/dL (0.2 - 1)
[2018-08-13 23:36] LABS: BACTERIA,URINE RARE /HPF; EPITHELIAL CELLS,URINE FEW /LPF; RBC,URINE 0-5 /HPF (0-5); WBC,URINE (MAN) 0-5 /HPF (0-5)
[2018-08-14 00:05] LABS: ALANINE AMINOTRANSFERASE 28 IU/L (0-55); ALBUMIN 3.5 g/dL (3.5-5.0); ALBUMIN/GLOBULIN RATIO 0.9 (0.8-2.0); ALKALINE PHOSPHATASE 119 IU/L (40-150); ANION GAP 16.8 mmol/L (8-16); BLOOD UREA NITROGEN 33 mg/dL (7-26); BUN/CREATININE RATIO 26 (6-25); CALCIUM 10.2 mg/dL (8.4-10.2); CARBON DIOXIDE 21 mmol/L (22-29); CHLORIDE 104 mmol/L (98-107); CREATINE KINASE 26 IU/L (29-168); CREATININE, SERUM 1.29 mg/dL (0.57-1.11); EST GLOMERULAR FILTRATION RATE 41 ML/MIN (60-); GLUCOSE 132 mg/dL (74-118); POTASSIUM 4.8 mmol/L (3.5-5.1); SODIUM 137 mmol/L (136-145)
[2018-08-14 00:57] LABS: ABG HCO3 23 mmol/L (23-28); ABG PCO2 41 mmHg (41-51); ABG PH 7.36 (7.31-7.41); ABG PO2 102 mmHg (80-105)
--- NOTE | 2018-08-14 01:23 | Diagnostic Imaging Report ---
EXAMINATION: CHEST SINGLE (PORTABLE) INDICATION: Shortness of breath, cough COMPARISON: 03/12/2018 FINDINGS: AP view TUBES and LINES: None. LUNGS: Lungs are moderately inflated. Interstitial opacities extending from the ruddy to the periphery with bibasilar opacities, left greater the right, likely atelectasis from adjacent effusions. PLEURA: Small bilateral pleural effusions, left greater than right. No pneumothorax. HEART AND MEDIASTINUM: Obscured inferiorly. BONES AND SOFT TISSUES: No acute osseous lesion. Soft tissues are unremarkable. UPPER ABDOMEN: No free air under the diaphragm. IMPRESSION: Pulmonary edema with small pleural effusions and adjacent atelectasis. Superimposed infection not excluded. Signed by: DR. Evelio Hadley MD on 08/14/2018 1:20 AM
[2018-08-14] MEDS ORDERED: PIPER-TAZ 3.375 GM 50 ML IV SCH (01:30)
[2018-08-14] MEDS ORDERED: AZTREONAM 1 GM/NS 50 ML 50 ML IV SCH ×2 (01:30→11:00)
[2018-08-14] MEDS ORDERED: FUROSEMIDE INJ 10 MG/ML 4 ML VIAL IV ONE (01:30)
[2018-08-14] MEDS ORDERED: ENOXAPARIN SODIUM INJ 100 MG/ML SYR SC ONE (01:30)
[2018-08-14] MEDS ORDERED: METFORMIN HCL500 M2 PO (01:35)
[2018-08-14] MEDS ORDERED: TEMAZEPAM15 MG PO (01:35)
[2018-08-14] MEDS ORDERED: CARVEDILOL12.5 MG PO (01:35)
[2018-08-14] MEDS ORDERED: TYLENOL # 31 EA PO (01:35)
[2018-08-14] MEDS ORDERED: TIZANIDINE HCL4 MG PO (01:35)
[2018-08-14] MEDS ORDERED: METOPROLOL TART50 MG PO (01:35)
[2018-08-14] MEDS ORDERED: CITALOPRAM HBR40 MG PO (01:35)
[2018-08-14] MEDS ORDERED: HYDRALAZINE HCL25 MG PO (01:35)
[2018-08-14] MEDS ORDERED: GABAPENTIN300 MG PO (01:35)
[2018-08-14] MEDS ORDERED: RANITIDINE HCL150 MG PO (01:35)
[2018-08-14] MEDS ORDERED: ZOFRAN4 MG PO (01:35)
[2018-08-14] MEDS ORDERED: BACLOFEN10 MG PO (01:35)
[2018-08-14] MEDS ORDERED: FUROSEMIDE40 MG PO (01:35)
[2018-08-14] MEDS ORDERED: NIFEDIPINE ER30 MG PO (01:35)
[2018-08-14] MEDS ORDERED: ASPIR 8181 MG PO (01:35)
--- NOTE | 2018-08-14 01:40 | NUR ---
PT PLACED ON 2L NC FOR SATS OF 91%
[2018-08-14] MEDS ORDERED: ENOXAPARIN SOD INJ 60 MG/0.6 ML SYR SC ONE (01:52)
[2018-08-14] MEDS ORDERED: IPRATROPIUM BROMIDE 0.02% 2.5 ML NEB NEB ONE (02:30)
[2018-08-14] MEDS ORDERED: LORAZEPAM INJ 2 MG/ML VIAL IV ONE (02:30)
[2018-08-14] MEDS ORDERED: LEVALBUTEROL HCL SOLN NEBU 0.63 MG/3 ML NEB INH ONE (02:30)
--- NOTE | 2018-08-14 02:40 | NUR ---
PT STILL SOB. DR LUCAS NOTIFIED, PT PLACED ON BIPAP 10/5 AT 40%, SATS 100% RR 20. WILL CONTINUE TO MONITOR
[2018-08-14] MEDS ORDERED: NITROGLYCERIN 2% OINT 1 GM PKT ONE (02:46)
[2018-08-14] MEDS: LEVALBUTEROL HCL SOLN NEBU 0.63 MG/3 ML NEB INH SCH ×6 (03:00→23:45)
[2018-08-14] MEDS: IPRATROPIUM BROMIDE 0.02% 2.5 ML NEB NEB SCH ×6 (03:00→23:45)
--- OUTSIDE RECORDS SUMMARY | 2018-08-14 03:05 | XMS REPORT | Clinical Summary ---
Author Author MAGDY [facility] Address Unknown Phone Unavailable Care Team Providers Care Patternmaker Plaster Name Role Phone Sharpless PCP Allergies No [...] Emergency General Internal Medicine - 03/21/2018 after 08/13/2017 Social History Date Tobacco Use Types Packs/Day [...] ms QTC Calculatio n(Bazett) 465 ms P [place] 67 degrees R [place] 36 degrees T [place] 106 degrees Normal sinus rhythm T wave [...] ms QTC Calculatio n(Bazett) 469 ms P [place] 70 degrees R [place] 62 degrees T [place] 103 degrees Normal sinus rhythm T wave [...] ms QTC Calculatio n(Bazett) 474 ms P [place] 72 degrees R [place] 86 degrees T [place] 87 degrees Normal sinus rhythm Nonspecifi c [...] ms QTC Calculatio n(Bazett) 491 ms P [place] 74 degrees R [place] 81 degrees T [place] 119 degrees Normal sinus rhythm Right atrial [...] 12-LEAD Routine 03/19/2018 6:23 PM CDT after 08/13/2017 Results * RHYTHM STRIP - SCAN (03/23/2018 12:00 PM CDT) Narrative Performed At * POC-Glucose meter (03/21/2018 12:39 PM CDT) Only the most recent of 7 results within the time period is included. POC-Glucose Meter 168 (H)Comment: TESTED AT 70 - 110 mg/dL [facility] [address] [facility] [address] Specimen Blood Performing Organization Address City/State/Zipcode Phone Number [facility] [address] [place] [address] MEDICAL CENTER * ECG 12 lead (03/21/2018 6:32 AM CDT) Only the most recent of 3 results within the time period is included. Narrative Performed At Ventricular Rate 68 BPM GE MUSE Atrial Rate 68 BPM P-R Interval 158 ms QRS Duration 90 ms Q-T Interval 442 ms QTC Calculation(Bazett) 469 ms P [place] 70 degrees R [place] 62 degrees T [place] 103 degrees Normal sinus rhythm T wave [...] 442 ms QTC Calculation(Bazett) 469 ms P [place] 70 degrees R [place] 62 degrees T [place] 103 degrees Normal sinus rhythm T wave abnormality, consider lateral ischemia Abnormal ECG When compared with ECG of 20-MAR-2018 06:26, ST elevation now present in Inferior leads Confirmed by MD STARKEY JOSEPH P ([id number]) on 03/22/2018 7:49:24 AM Performing Organization Address City/State/[facility] Phone Number GE M[facility] * Magnesium (03/21/2018 5:17 AM CDT) Only the most recent of 3 results within the time period is included. Magnesium 1.6 1.6 - 2.6 mg/dL [facility] Specimen Blood Performing Organization Address City/[facility] Phone Number [facility] [address] [place] [address] [phone] [address] * Basic metabolic panel (03/21/2018 5:17 AM CDT) Only the most recent of 3 results within the time period is included. Sodium 138 136 - 145 meq/L [facility] Potassium 4.0 3.5 - 5.1 meq/L [facility] Chloride 108 (H) 98 - 107 meq/L [facility] CO2 21 (L) 22 - 29 meq/L [facility] BUN 30 (H) 7 - 21 mg/dL [facility] Creatinine 1.04 0.57 - 1.25 mg/dL [facility] Glucose 190 (H) 70 - 105 mg/dL [facility] Calcium 8.8 8.4 - 10.2 mg/dL [facility] EGFR 53Comment: ESTIMATED GFR IS mL/min/1.73 sq m [facility] NOT ACCURATE CREATININE [facility] CLEARANCE IN PREDICTING GLOMERULAR FILTRATION RATE. ESTIMATED GFR IS NOT APPLICABLE FOR DIALYSIS PATIENTS. Specimen Blood Performing Organization Address City/[facility] Phone Number [facility] [address] [place], [place] [phone] [facility] * Troponin I (03/20/2018 4:05 PM CDT) Only the most recent of 2 results within the time period is included. Troponin I 0.01 0.00 - 0.03 ng/mL [facility] Specimen Blood - Arm, Right Narrative Performed At Troponin I (TnI) levels must be interpreted in the context of the presenting [facility] symptoms and the clinical findings. Elevated TnI levels indicate myocardial [facility] damage, but are not specific for ischemic heart disease. Elevated TnI levels are seen in patients with other cardiac conditions (including myocarditis and congestive heart failure), and slight TnI elevations occur in patients with other conditions, including sepsis, renal failure, acidosis, acute neurological disease, and persistent tachyarrhythmia. Performing Organization Address [facility] Phone Number [facility] [address] [place], [place] [phone] [facility] * Urinalysis w/ Microscopic (03/20/2018 6:14 AM CDT) Color, UA Yellow [facility] Clarity, UA Clear [facility] Specific [employer], UA 1.017 1.001 - 1.035 [facility] pH, UA 6.0 5.0 - 8.0 [facility] Protein, UA 600 mg/dL (A) Negative [facility] Glucose, UA >1000 mg/dL (A) Negative [facility] Ketones, UA 10 mg/dL (A) Negative [facility] Bilirubin, UA Negative Negative [facility] Blood, UA Negative Negative [facility] Nitrite, UA Negative Negative [facility] Leukocytes, UA Negative Negative [facility] Urobilinogen, UA 0.2 0.2 - 1.0 mg/dL [facility] RBC, UA 1 /HPF [facility] WBC, UA 22 /HPF [facility] Mucus Occasional [facility] Squam Epithel, UA 12 /HPF [facility] Hyaline Casts, UA 29 /LPF [facility] Specimen Source Urine, Voided [facility] Specimen Urine - Urine, Voided Performing Organization Address City/State/Zipcode Phone Number [facility] [address] [place] [address] [facility] * CBC with platelet count + automated diff (03/20/2018 5:51 AM CDT) Only the most recent of 2 results within the time period is included. WBC 9.6 3.5 - 10.5 K/L [facility] RBC 5.18 3.93 - 5.22 M/L [facility] Hemoglobin 13.9 11.2 - 15.7 GM/DL [facility] Hematocrit 44.0 34.1 - 44.9 % [facility] MCV 84.9 79.4 - 94.8 fL [facility] MCH 26.8 25.6 - 32.2 pg [facility] MCHC 31.6 (L) 32.2 - 35.5 GM/DL [facility] RDW 13.1 11.7 - 14.4 % [facility] Platelets 285 150 - 450 K/CU MM [facility] MPV 10.0 9.4 - 12.3 fL [facility] nRBC 0 0 - 0 /100 WBC [facility] % Neutros 54 % [facility] % Lymphs 38 % [facility] % Monos 6 % [facility] % Eos 1 % [facility] % Baso 1 % [facility] # Neutros 5.22 1.56 - 6.13 K/L [facility] # Lymphs 3.61 1.18 - 3.74 K/L [facility] # Monos 0.61 (H) 0.24 - 0.36 K/L [facility] # Eos 0.08 0.04 - 0.36 K/L [facility] # Baso 0.05 0.01 - 0.08 K/L [facility] Immature 0 0 - 1 % [facility] Granulocytes-[facility] Specimen Blood Performing Organization Address City/[facility]/Zipcode Phone Number [address] [address] [facility] * Prothrombin time/INR (03/20/2018 5:51 AM CDT) Protime 13.2 11.7 - 14.7 seconds [facility] INR 1.0 <=5.9 [facility] Specimen Blood Narrative Performed At RECOMMENDED COUMADIN/WARFARIN INR THERAPY RANGES [facility] STANDARD DOSE: 2.0 - 3.0 Includes: PROPHYLAXIS for venous thrombosis, [facility] systemic embolization; TREATMENT for venous thrombosis and/or pulmonary embolus. HIGH RISK: Target INR is 2.5-3.5 for patients with mechanical heart valves. Performing Organization Address City/State/Zipcode Phone Number [place] [phone] [place] [address] [facility] * Hepatic function panel (03/20/2018 5:51 AM CDT) Protein, Total 6.3 6.0 - 8.3 gm/dL [facility] Albumin 3.5 3.5 - 5.0 g/dL [facility] Total Bilirubin 0.5 0.2 - 1.2 mg/dL [facility] Bilirubin, Direct 0.2 0.1 - 0.5 mg/dL [facility] Alkaline Phosphatase 94 40 - 150 U/L [facility] AST 10 5 - 34 U/L [facility] ALT 13 6 - 55 U/L [facility] Specimen Blood Performing Organization Address City/[facility] Phone Number [facility] [address] [place] [address] [facility] * Lipid panel (03/20/2018 5:51 AM CDT) Triglycerides 219 mg/dL [facility] Cholesterol 190 mg/dL [facility] HDL 44 mg/dL [facility] LDL Calculated 102 mg/dL [facility] Specimen Blood Narrative Performed At Triglyceride Reference Range: [facility] Low Risk <150 [facility] [id number] High Risk 200-499 Very High Risk>=500 Cholesterol Reference Range: Low Risk <200 [id number] High Risk>240 HDL Cholesterol Reference Range: Low Risk >=60 High Risk <40 LDL Cholesterol Reference Range: Optimal<100 Near [id number] [id number] Itvb960-248 Very High >=190 Performing Organization Address City/[facility] Phone Number [facility] [address] [place] [address] [facility] * XR chest 1 view portable / bedside (03/19/2018 8:43 PM CDT) Narrative Performed At FINAL REPORT [facility] RAD, CHEST, 1 VIEW, NON DEPT INDICATION: chest pain COMPARISON: None TECHNIQUE: Single frontal view of the chest. IMPRESSION: Cardiomediastinal silhouette within normal limits. No overt consolidative or congestive change. No acute osseous abnormality. Signed: Luba Lund MD Report Verified Date/Time:03/19/2018 21:33:48 Reading Location: [address] Reading Room Procedure Note Interface, External Ris In - 03/19/2018 9:36 PM CDT FINAL REPORT RAD, CHEST, 1 VIEW, NON DEPT INDICATION: chest pain COMPARISON: None TECHNIQUE: Single frontal view of the chest. IMPRESSION: Cardiomediastinal silhouette within normal limits. No overt consolidative or congestive change. No acute osseous abnormality. Signed: Luba Lund MD Report Verified Date/Time: 03/19/2018 21:33:48 Reading Location: [address] Reading Room Performing Organization Address City/[facility] Phone Number GE RIS * PT/PTT (03/19/2018 6:43 PM CDT) Protime 13.2 11.7 - 14.7 seconds [facility] INR 1.0 <=5.9 [facility] PTT 25.3 22.5 - 36.0 seconds [facility] Specimen Blood - Arm, Left Narrative Performed At RECOMMENDED COUMADIN/WARFARIN INR THERAPY RANGES [facility] STANDARD DOSE: 2.0 - 3.0 Includes: PROPHYLAXIS for venous thrombosis, [facility] systemic embolization; TREATMENT for venous thrombosis and/or pulmonary embolus. HIGH RISK: Target INR is 2.5-3.5 for patients with mechanical heart valves. Performing Organization Address City/State/Zipcode Phone Number [facility] [address] [place] [address] [facility] * B-type Natriuretic Factor (BNP) (03/19/2018 6:43 PM CDT) BNP 50 0 - 100 pg/mL [facility] Specimen Blood - Arm, Left Performing Organization Address City/[facility]/Zipcode Phone Number [facility] [address] [place], [place] [phone] [facility]ENTER after 08/13/2017 Insurance Payer Benefit Subscriber ID Type Phone Address Plan / Group [employer] - [employer] CARE KI TAYLOR xxxxxxxxxxx HMO/POS HMO/POS OPEN ACCESS Advance Directives For more information, please contact: [address] [address] Date Inactivated Comments Code Status Date Activated 03/21/2018 5:25 PM Full Code 03/20/2018 2:15 AM This code status was determined by: Patient
[2018-08-14] MEDS ORDERED: DEXTROSE 50% SYRINGE 50 ML IV PRN (05:30)
[2018-08-14] MEDS: NITROGLYCERIN 2% OINT 1 GM PKT TOP SCH ×3 (06:10→19:59)
--- NOTE | 2018-08-14 07:00 | NUR ---
RECEIVED REPORT FROM ANANDA MERRILL WEIGHT CLERK NURSE.
[2018-08-14 07:21] LABS: CREATINE KINASE 27 IU/L (29-168)
[2018-08-14] MEDS: INSULIN REGULAR, HUMAN 100 UNIT/1 ML 3ML VIAL SQ SCH ×4 (08:21→20:53)
--- NOTE | 2018-08-14 08:45 | NUR ---
MEAL GIVEN TO PT.
[2018-08-14] MEDS: PIPER-TAZ 3.375 GM 50 ML IV SCH ×3 (08:50→21:30)
[2018-08-14] MEDS: FUROSEMIDE INJ 10 MG/ML 4 ML VIAL IV SCH ×2 (09:15→17:34)
--- NOTE | 2018-08-14 12:40 | NUR ---
LUNCH TRAY GIVEN TO PT.
[2018-08-14] MEDS ORDERED: MAGNESIUM HYDROXIDE 30 ML UDC PO NR (13:30)
[2018-08-14] MEDS: DOXYCYCLINE 100MG/NS 100ML 100 ML IV SCH (14:02)
[2018-08-14] MEDS ORDERED: ONDANSETRON HCL 4 MG ORAL DISINTEGRATING TAB SL PRN (14:15)
[2018-08-14] MEDS: NIFEDIPINE CR 30 MG TAB PO SCH (14:32)
[2018-08-14] MEDS ORDERED: METHYLPREDNISOLONE SOD SUCC 40 MG/ML VIAL IV NR (14:59)
[2018-08-14] MEDS: HYDRALAZINE HCL 25 MG TAB PO SCH ×2 (15:06→20:52)
[2018-08-14 15:35] LABS: CREATINE KINASE 21 IU/L (29-168)
--- NOTE | 2018-08-14 15:37 | History and Physical ---
PRIMARY CARE DOCTOR: Dr. Sotelo [facility]. HOSPITAL COVERAGE: Dr. Walden. HISTORY: The patient is a pleasant 68-year-old female with shortness of breath with onset 3 days ago. She has had increasing paroxysmal nocturnal dyspnea. Dyspnea on exertion has been worse and she is barely able to walk room distance right now. Patient presents to the emergency room. She is wheezing. She is having respiratory difficulty. At this point, she is admitted for aggressive care. Patient already with 3 hospitalizations here and this is the fourth. No home oxygen. Exercise tolerance is one room distance. She saw her regulatory auditor, Dr. Poe at [facility] who said her heart was good. I have echocardiogram from June 09, 2018 at outside hospital showing LVEF 40% to 45% with impaired relaxation on diastolic filling. Left atrium is moderately dilated. The intraventricular septal diameter is 1.6 cm. Patient claims this is the first year she was diagnosed with congestive heart failure. There is also some CKD present. PAST MEDICAL HISTORY: Diabetes, hypertension, dyslipidemia, fibromyalgia, osteoarthritis. MEDICATIONS: Medication list reviewed per electronic record. Patient even claims she is taking Lasix 2 tablets a day, although she does not know the dose. I assume it is 80 mg a day but not sure. ALLERGIES: NO KNOWN DRUG ALLERGIES. SOCIAL HISTORY: No smoking, no drinking, no drugs. FAMILY HISTORY: Noncontributory to this scenario. REVIEW OF SYSTEMS GENERAL: No weight changes. OPHTHALMOLOGIC: No double vision. ENT: No oral ulcers. ENDOCRINE: No thyroid disorder known. PULMONARY: No asthma. CARDIAC: No heart attack. GI: There is constipation. : No blood in the urine. DERMATOLOGIC: No rash. NEUROLOGIC: No seizures. PSYCHIATRIC: No depression. OBJECTIVE VITAL SIGNS: Afebrile. Vital signs noted per electronic record. GENERAL: No acute stress, alert and calm. HEENT: Normocephalic, atraumatic. NECK: Supple. Throat midline. LUNGS: Bilateral air entry, mild wheezes on exam, moderate air entry. There is 1 to 2+ leg edema. ABDOMINAL: Soft, nontender. EXTREMITIES: No clubbing, no cyanosis. INTEGUMENT: No rash or purpura. LABS: Potassium 4.8, BUN 33, creatinine 1.3. White blood count 12, hematocrit 33, platelets 310. IMPRESSION AND PLAN 1. Chronic heart failure with exacerbation. 2. Mildly reduced ejection fraction per the echo I could see, although she was told by her other regulatory auditor that heart is good. So, left ventricular ejection fraction 40% to 45%, xstvn-ls-grbgrhb systolic failure. 3. Possible pneumonia. 4. Chronic kidney disease. 5. Hypertension, uncontrolled with 189/76 blood pressure on admit. 6. Diabetes. 7. Hyperlipidemia. 8. Mild anemia. At this time, continue diuresis. Get cardiology consult to reconcile the complicated history here and the difficulties with keeping her out the hospital. I will order chest CT given the difficulties keeping her out in refractoriness of her condition. Empiric antibiotics have been given. DVT prophylaxis. She needs bowel movement and will assist with medicines. Last thyroid testing was in February 2018, which was normal. Will follow up. She is with uncontrolled diabetes and very uncontrolled cholesterol based on old findings. Dr. Walden and I would like to thank Dr. Sotelo for allowing us the chance to participate in the care of Ms. Lund. Please do not hesitate to contact us if we could help in any way. Job#: [id number] KALYAN MAR
[2018-08-14] MEDS: METOPROLOL TARTRATE 50 MG TAB PO SCH (17:30)
[2018-08-14] MEDS: FAMOTIDINE 20 MG TAB PO SCH (17:30)
[2018-08-14] MEDS: CARVEDILOL 12.5 MG TAB PO SCH (17:30)
[2018-08-14] MEDS: ENOXAPARIN SOD INJ 40 MG/0.4 ML SYR SC SCH (17:32)
[2018-08-14] MEDS: DOCUSATE SODIUM 100 MG CAP PO SCH (17:59)
--- NOTE | 2018-08-14 19:13 | NUR ---
REPORT GIVEN TO ANANDA MERRILL MINER OPERATOR NURSE.
[2018-08-14] MEDS ORDERED: TEMAZEPAM 15 MG CAP PO SCH (21:00)
[2018-08-14] MEDS: ACETAMINOPHEN/CODEINE 300MG - 30MG TAB PO PRN (21:22)
[2018-08-14] MEDS: TEMAZEPAM 15 MG CAP PO SCH (21:22)
[2018-08-15] MEDS: LEVALBUTEROL HCL SOLN NEBU 0.63 MG/3 ML NEB INH SCH ×6 (00:20→19:05)
[2018-08-15] MEDS: IPRATROPIUM BROMIDE 0.02% 2.5 ML NEB NEB SCH ×6 (00:20→19:05)
[2018-08-15] MEDS: DOXYCYCLINE 100MG/NS 100ML 100 ML IV SCH ×2 (01:25→15:35)
[2018-08-15] MEDS: PIPER-TAZ 3.375 GM 50 ML IV SCH ×5 (01:49→21:42)
[2018-08-15] MEDS: NITROGLYCERIN 2% OINT 1 GM PKT TOP SCH ×5 (01:51→21:44)
[2018-08-15] MEDS: ACETAMINOPHEN/CODEINE 300MG - 30MG TAB PO PRN (06:10)
[2018-08-15 06:44] LABS: BASOPHILS % 0.7 % (0.0-1.0); EOSINOPHILS # (AUTO) 0.3 (0.0-0.4); EOSINOPHILS % 4.3 % (0.0-6.0); HEMATOCRIT 28.5 % (34.2-44.1); HEMOGLOBIN 8.9 g/dL (12.0-16.0); LYMPHOCYTES # (AUTO) 1.8 (1.0-3.2); LYMPHOCYTES % 31.3 % (18.0-39.1); MEAN CORPUSCULAR HEMOGLOBIN 26.6 pg (28-32); MEAN CORPUSCULAR HGB CONC 31.2 g/dL (31-35); MEAN CORPUSCULAR VOLUME 85.1 fL (81-99); MONOCYTES # (AUTO) 0.7 (0.2-0.8); MONOCYTES % 11.7 % (4.4-11.3); NEUTROPHILS % 51.5 % (38.7-80.0); PLATELET COUNT 249 x10e3/uL (140-360); RED BLOOD COUNT 3.35 x10e6/uL (3.6-5.1); RED CELL DISTRIBUTION WIDTH 14.7 % (11.7-14.4)
[2018-08-15 06:59] LABS: ALBUMIN 2.5 g/dL (3.5-5.0); ALBUMIN/GLOBULIN RATIO 0.8 (0.8-2.0); CALCIUM 9.1 mg/dL (8.4-10.2); CREATININE, SERUM 1.29 mg/dL (0.57-1.11)
[2018-08-15 07:37] LABS: CHOL/HDL RATIO 4.1 (3.0-3.6)
--- NOTE | 2018-08-15 07:45 | Progress Note ---
DATE: August 15, 2018 CARDIOLOGY PROGRESS NOTE SUBJECTIVE: No major events overnight. OBJECTIVE VITAL SIGNS: Temperature afebrile, pulse 71, respiratory rate 13, blood pressure 127/46, and satting 100% on nasal cannula. GENERAL: White female, no acute distress. CARDIOVASCULAR: Regular rate and rhythm. No murmurs, rubs, or gallops. Palpable carotid pulses. Palpable radial pulses. LUNGS: Clear to auscultation bilaterally. ABDOMEN: Soft, nontender, nondistended. NEURO AND PSYCH: Alert and oriented to person, place, and time. Normal affect. INPATIENT MEDICATIONS: Reviewed. LABORATORY DATA: Reviewed. IMAGING DATA: Reviewed. TELEMETRY DATA: Reviewed, shows normal sinus rhythm. ASSESSMENT 1. Qejyc-lk-jiccurf diastolic heart failure exacerbation. 2. Hypertension. 3. Pulmonary edema. 4. Hypoxia. PLAN: Continue IV diuretics. Echocardiogram is pending. Patient had a normal stress test and echocardiogram done in February. Blood pressure is improved now with diuretics. Continue current cardiovascular medications. Thank you for this consult. We will continue to follow. Job#: [id number] GERALDINE
[2018-08-15 07:58] LABS: THYROID STIMULATING HORMONE 1.342 uIU/mL (0.350-4.940)
[2018-08-15] MEDS: INSULIN REGULAR, HUMAN 100 UNIT/1 ML 3ML VIAL SQ SCH ×4 (08:12→21:21)
--- NOTE | 2018-08-15 08:43 | Diagnostic Imaging Report ---
EXAM: CT Chest WITHOUT contrast 08/15/2018 8:00 AM INDICATION: ^pneumonia ^[id number] ^0800 COMPARISON: Chest radiograph 08/14/2018, CTA chest 03/11/2018 TECHNIQUE: Chest was scanned utilizing a multidetector helical scanner from the lung apex through the level of the adrenal glands without administration of IV contrast. Absence of intravenous contrast decreases sensitivity for detection of lymphadenopathy and vascular pathology. Coronal and sagittal reformations were obtained. Routine protocol was performed. IV CONTRAST: None COMPLICATIONS: None RADIATION DOSE: Total DLP: 396.7 mGy*cm Estimated effective dose: (DLP x 0.015 x size factor) mSv CTDIvol has been reviewed. It is below the limits set by the Radiation Protocol Committee (RPC). FINDINGS: LINES/ TUBES: None. LUNGS AND AIRWAYS: Bilateral interstitial edema, improved since prior chest radiograph. Bilateral lower lobe consolidations with hyperdense lung parenchyma suggestive of atelectasis. The lungs are patchy groundglass opacities in the left upper lobe. Airways are normal. PLEURA: Moderate low-attenuation bilateral pleural effusions. No pneumothorax. HEART AND MEDIASTINUM: 1.8 cm hypodense nodule in the left thyroid lobe is unchanged. A few additional subcentimeter thyroid nodules. Multiple noncalcified bilateral mediastinum enlarged lymph nodes, measuring up to 1.3 cm in transverse diameter, new since 03/11/2018 and likely reactive to infection. Cardiomegaly. Trace pericardial effusion. The thoracic aorta is normal in caliber and associated with scattered atherosclerotic calcifications. The main pulmonary artery is normal in caliber measuring 2.5 cm. UPPER ABDOMEN: 6 mm calcification in the left kidney may represent a stone versus dystrophic calcification. Thickening of the left adrenal gland without discrete nodule. BONES: Multilevel degenerative changes of the thoracic spine. SOFT TISSUES: Unremarkable. IMPRESSION: 1. Cardiomegaly with associated bilateral interstitial edema and moderate bilateral pleural effusions, mildly improved since 08/04/2018. 2. More asymmetric groundglass opacities in the left upper lobe may represent evolving pneumonia. 3. Bilateral lower lobe atelectasis. 4. Thyroid lobe nodules measuring up to 1.8 cm, stable since 03/11/2018. Recommend follow-up thyroid ultrasound in 3-6 months. Signed by: Dr. Tammy Jones M.D. on 08/15/2018 8:40 AM
[2018-08-15] MEDS: FAMOTIDINE 20 MG TAB PO SCH ×2 (08:50→17:15)
[2018-08-15] MEDS: FUROSEMIDE INJ 10 MG/ML 4 ML VIAL IV SCH ×2 (10:23→17:15)
[2018-08-15] MEDS: HYDRALAZINE HCL 25 MG TAB PO SCH ×3 (10:26→21:29)
[2018-08-15] MEDS: ASPIRIN 81 MG CHEW TAB PO SCH (10:26)
[2018-08-15] MEDS: NIFEDIPINE CR 30 MG TAB PO SCH (10:26)
[2018-08-15] MEDS: METOPROLOL TARTRATE 50 MG TAB PO SCH ×2 (10:26→17:15)
[2018-08-15] MEDS: CARVEDILOL 12.5 MG TAB PO SCH ×2 (10:26→17:15)
[2018-08-15] MEDS: DOCUSATE SODIUM 100 MG CAP PO SCH ×2 (10:42→17:15)
--- NOTE | 2018-08-15 16:16 | Progress Note ---
DATE: August 15, 2018 INTERNAL MEDICINE PROGRESS NOTE COVERAGE FOR: Dr. Drew Walden. SUBJECTIVE: Ms. Lund was seen and examined at bedside. She was using BiPAP still. She was able to come off BiPAP transiently in daytime. She ate well. She was on nasal cannula oxygen for part of the day at 5 liters per minute of flow. She is diuresing well. We appreciate cardiology assessment of the patient. REVIEW OF SYSTEMS: No headaches, no rash. OBJECTIVE VITAL SIGNS: Afebrile. Vital signs noted per electronic record. GENERAL: In no acute distress, alert and calm on BiPAP. HEENT: Normocephalic, atraumatic. NECK: Supple. Throat midline. LUNGS: Bilateral air entry, rare rales. CARDIOVASCULAR: S1 and S2. No murmurs, rubs, or gallops. ABDOMEN: Soft and nontender. EXTREMITIES: No clubbing. No cyanosis. There is 1+ edema, improved INTEGUMENT: No rash or purpura. LABS : White count 6, hematocrit 29, platelets 249. Creatinine 1.3, potassium 4.0, glucose 179. Hemoglobin A1c 7.3%. TSH normal. IMPRESSION AND PLAN 1. Yxjzy-ri-dvfmbyo heart failure with exacerbation. 2. Possible pneumonia. 3. Chronic kidney disease. 4. Hypertension, uncontrolled on admission. 5. Moderate hypoalbuminemia. Albumin 2.5. 6. Chronic constipation. 7. Diabetes, hyperlipidemia, mild anemia. We will give the patient more diuretic today. We will continue weaning her off the BiPAP. We will get PT to see her and try to mobilize her and she gets better. Patient still holding in the emergency room for now notably. She received some steroid dozing. We will continue antibiotics and we will continue DVT prophylaxis. Job#: [id number] TAN
[2018-08-15] MEDS: ENOXAPARIN SOD INJ 40 MG/0.4 ML SYR SC SCH (17:16)
--- NOTE | 2018-08-15 19:30 | NUR ---
REPORT GIVEN TO ANANDA INIGUEZBRAND MARKETING INTERNDIGITAL ADVERTISING ANALYST NURSE.
--- NOTE | 2018-08-15 19:30 | NUR ---
PT AWAKE ALERT SKIN W/D RESP NONLAB. NAD NOTED. PT NO LONGER ON BIPAP. STATES SHE FEELS MUCH BETTER TODAY.
[2018-08-15] MEDS: TEMAZEPAM 15 MG CAP PO SCH (21:29)
--- NOTE | 2018-08-16 02:30 | NUR ---
COMPLAINS OF HEADACHE, 12/08. MEDICATED PER ORDERS
[2018-08-16] MEDS: ACETAMINOPHEN/CODEINE 300MG - 30MG TAB PO PRN ×2 (02:31→15:30)
[2018-08-16] MEDS: DOXYCYCLINE 100MG/NS 100ML 100 ML IV SCH (02:31)
[2018-08-16] MEDS: LEVALBUTEROL HCL SOLN NEBU 0.63 MG/3 ML NEB INH SCH ×3 (03:00→10:11)
[2018-08-16] MEDS: IPRATROPIUM BROMIDE 0.02% 2.5 ML NEB NEB SCH ×3 (03:00→10:12)
--- NOTE | 2018-08-16 04:00 | NUR ---
IV DOES NOT FLUSH WELL OR HAVE + BLOOD RETURN, DC'D AND RE-SITED R FOREARM WITH 20G X 1 STICK, TOLERATED WELL. BLOOD DRAWN FOR AM LABS
[2018-08-16 04:36] LABS: ANION GAP 17.1 mmol/L (8-16); CALCIUM 9.1 mg/dL (8.4-10.2); CREATININE, SERUM 1.43 mg/dL (0.57-1.11); MAGNESIUM 1.6 MG/DL (1.3-2.1); PHOSPHORUS 3.1 MG/DL (2.3-4.7); POTASSIUM 4.1 mmol/L (3.5-5.1)
[2018-08-16 04:45] LABS: ALBUMIN 2.8 g/dL (3.5-5.0); BILIRUBIN,DIRECT 0.3 mg/dL (0.0-0.5)
[2018-08-16] MEDS: PIPER-TAZ 3.375 GM 50 ML IV SCH (06:04)
[2018-08-16] MEDS: NITROGLYCERIN 2% OINT 1 GM PKT TOP SCH (06:04)
--- NOTE | 2018-08-16 07:01 | NUR ---
REPORT TO ANANDA LOVELL
--- NOTE | 2018-08-16 07:16 | NUR ---
RECEIVED REPORT FROM GEETHA CHIEF NURSE ANESTHETISTWEB METHODS DEVELOPER NURSE.
[2018-08-16] MEDS: INSULIN REGULAR, HUMAN 100 UNIT/1 ML 3ML VIAL SQ SCH (07:59)
[2018-08-16] MEDS: DOCUSATE SODIUM 100 MG CAP PO SCH ×2 (09:00→17:15)
[2018-08-16] MEDS: FAMOTIDINE 20 MG TAB PO SCH (09:00)
[2018-08-16] MEDS: ASPIRIN 81 MG CHEW TAB PO SCH (09:00)
[2018-08-16] MEDS: FUROSEMIDE INJ 10 MG/ML 4 ML VIAL IV SCH ×2 (09:02→17:05)
--- OUTSIDE RECORDS SUMMARY | 2018-08-16 10:23 | XMS REPORT | Clinical Summary ---
Author Author [facility] Address Unknown Phone Unavailable Care Team Providers Care Corporate Communications Associate Name Role Phone Sharpless PCP Allergies No [...] Emergency General Internal Medicine - 03/21/2018 after 08/15/2017 Social History Date Tobacco Use Types Packs/Day [...] ms QTC Calculatio n(Bazett) 465 ms P Mok[place] 67 degrees R Mokane 36 degrees T [place] 106 degrees Normal sinus rhythm T wave [...] ms QTC Calculatio n(Bazett) 469 ms P [place] 70 degrees R [place]ok[place] 62 degrees T [place] 103 degrees Normal sinus rhythm T wave [...] ms QTC Calculatio n(Bazett) 474 ms P [place]ane 72 degrees R Mokane 86 degrees T [place] 87 degrees Normal sinus rhythm Nonspecifi c [...] ms QTC Calculatio n(Bazett) 491 ms P [place] 74 degrees R [place]ok[place] 81 degrees T [place] 119 degrees Normal sinus rhythm Right atrial [...] 12-LEAD Routine 03/19/2018 6:23 PM CDT after 08/15/2017 Results * RHYTHM STRIP - SCAN (03/23/2018 12:00 PM CDT) Narrative Performed At * POC-Glucose meter (03/21/2018 12:39 PM CDT) Only the most recent of 7 results within the time period is included. POC-Glucose Meter 168 (H)Comment: TESTED AT 70 - 110 mg/dL [facility] [address] [facility] [id number] Specimen Blood Performing Organization Address City/State/Zipcode Phone Number [facility] [address] [place] [address] MEDICAL CENTER * ECG 12 lead (03/21/2018 6:32 AM CDT) Only the most recent of 3 results within the time period is included. Narrative Performed At Ventricular Rate 68 BPM GE MUSE Atrial Rate 68 BPM P-R Interval 158 ms QRS Duration 90 ms Q-T Interval 442 ms QTC Calculation(Bazett) 469 ms P Mokane 70 degrees R Mokane 62 degrees T [place] 103 degrees Normal sinus rhythm T wave [...] 442 ms QTC Calculation(Bazett) 469 ms P [place]okane 70 degrees R [place]ok[place] 62 degrees T [place] 103 degrees Normal sinus rhythm T wave abnormality, consider lateral ischemia Abnormal ECG When compared with ECG of 20-MAR-2018 06:26, ST elevation now present in Inferior leads Confirmed by MD STARKEY JOSEPH P ([id number]) on 03/22/2018 7:49:24 AM Performing Organization Address City/State/[facility] Phone Number GE M[facility] * Magnesium (03/21/2018 5:17 AM CDT) Only the most recent of 3 results within the time period is included. Magnesium 1.6 1.6 - 2.6 mg/dL [facility] Specimen Blood Performing Organization Address City/[facility] Phone Number [facility] [address] [place] [address] [phone] [place] [address] * Basic metabolic panel (03/21/2018 5:17 AM CDT) Only the most recent of 3 results within the time period is included. Sodium 138 136 - 145 meq/L [facility] Potassium 4.0 3.5 - 5.1 meq/L [facility] Chloride 108 (H) 98 - 107 meq/L [facility] CO2 21 (L) 22 - 29 meq/L [facility] BUN 30 (H) 7 - 21 mg/dL [facility] Creatinine 1.04 0.57 - 1.25 mg/dL [facility] Glucose 190 (H) 70 - 105 mg/dL [facility] Calcium 8.8 8.4 - 10.2 mg/dL [facility] EGFR 53Comment: ESTIMATED GFR IS mL/min/1.73 sq m [facility] NOT ACCURATE CREATININE [facility] CLEARANCE IN PREDICTING GLOMERULAR FILTRATION RATE. ESTIMATED GFR IS NOT APPLICABLE FOR DIALYSIS PATIENTS. Specimen Blood Performing Organization Address City/[facility] Phone Number [facility] [address] [place], [place] [phone] [facility] * Troponin I (03/20/2018 4:05 PM CDT) Only the most recent of 2 results within the time period is included. Troponin I 0.01 0.00 - 0.03 ng/mL [facility] Specimen Blood - Arm, Right Narrative Performed At Troponin I (TnI) levels must be interpreted in the context of the presenting [facility] symptoms and the clinical findings. Elevated TnI levels indicate myocardial [facility] damage, but are not specific for ischemic heart disease. Elevated TnI levels are seen in patients with other cardiac conditions (including myocarditis and congestive heart failure), and slight TnI elevations occur in patients with other conditions, including sepsis, renal failure, acidosis, acute neurological disease, and persistent tachyarrhythmia. Performing Organization Address [facility] Phone Number [facility] [address] [place], [place] [phone] [facility] * Urinalysis w/ Microscopic (03/20/2018 6:14 AM CDT) Color, UA Yellow [facility] Clarity, UA Clear [facility] Specific [place], UA 1.017 1.001 - 1.035 [facility] pH, UA 6.0 5.0 - 8.0 [facility] Protein, UA 600 mg/dL (A) Negative [facility] Glucose, UA >1000 mg/dL (A) Negative [facility] Ketones, UA 10 mg/dL (A) Negative [facility] Bilirubin, UA Negative Negative [facility] Blood, UA Negative Negative [facility] Nitrite, UA Negative Negative [facility] Leukocytes, UA Negative Negative [facility] Urobilinogen, UA 0.2 0.2 - 1.0 mg/dL [facility] RBC, UA 1 /HPF [facility] WBC, UA 22 /HPF [facility] Mucus Occasional [facility] Squam Epithel, UA 12 /HPF [facility] Hyaline Casts, UA 29 /LPF [facility] Specimen Source Urine, Voided [facility] Specimen Urine - Urine, Voided Performing Organization Address City/State/Zipcode Phone Number [facility] [address] [place] [address] [facility] * CBC with platelet count + automated diff (03/20/2018 5:51 AM CDT) Only the most recent of 2 results within the time period is included. WBC 9.6 3.5 - 10.5 K/L [facility] RBC 5.18 3.93 - 5.22 M/L [facility] Hemoglobin 13.9 11.2 - 15.7 GM/DL [facility] Hematocrit 44.0 34.1 - 44.9 % [facility] MCV 84.9 79.4 - 94.8 fL [facility] MCH 26.8 25.6 - 32.2 pg [facility] MCHC 31.6 (L) 32.2 - 35.5 GM/DL [facility] RDW 13.1 11.7 - 14.4 % [facility] Platelets 285 150 - 450 K/CU MM [facility] MPV 10.0 9.4 - 12.3 fL [facility] nRBC 0 0 - 0 /100 WBC [facility] % Neutros 54 % [facility] % Lymphs 38 % [facility] % Monos 6 % [facility] % Eos 1 % [facility] % Baso 1 % [facility] # Neutros 5.22 1.56 - 6.13 K/L [facility] # Lymphs 3.61 1.18 - 3.74 K/L [facility] # Monos 0.61 (H) 0.24 - 0.36 K/L [facility] # Eos 0.08 0.04 - 0.36 K/L [facility] # Baso 0.05 0.01 - 0.08 K/L [facility] Immature 0 0 - 1 % [facility] Granulocytes-[facility] Specimen Blood Performing Organization Address City/[facility]/Zipcode Phone Number [address] [address] [facility] * Prothrombin time/INR (03/20/2018 5:51 AM CDT) Protime 13.2 11.7 - 14.7 seconds [facility] INR 1.0 <=5.9 [facility] Specimen Blood Narrative Performed At RECOMMENDED COUMADIN/WARFARIN INR THERAPY RANGES [facility] STANDARD DOSE: 2.0 - 3.0 Includes: PROPHYLAXIS for venous thrombosis, [facility] systemic embolization; TREATMENT for venous thrombosis and/or pulmonary embolus. HIGH RISK: Target INR is 2.5-3.5 for patients with mechanical heart valves. Performing Organization Address City/State/Zipcode Phone Number [place] [phone] [place] [address] [facility] * Hepatic function panel (03/20/2018 5:51 AM CDT) Protein, Total 6.3 6.0 - 8.3 gm/dL [facility] Albumin 3.5 3.5 - 5.0 g/dL [facility] Total Bilirubin 0.5 0.2 - 1.2 mg/dL [facility] Bilirubin, Direct 0.2 0.1 - 0.5 mg/dL [facility] Alkaline Phosphatase 94 40 - 150 U/L [facility] AST 10 5 - 34 U/L [facility] ALT 13 6 - 55 U/L [facility] Specimen Blood Performing Organization Address City/[facility] Phone Number [facility] [address] [place] [address] [facility] * Lipid panel (03/20/2018 5:51 AM CDT) Triglycerides 219 mg/dL [facility] Cholesterol 190 mg/dL [facility] HDL 44 mg/dL [facility] LDL Calculated 102 mg/dL [facility] Specimen Blood Narrative Performed At Triglyceride Reference Range: [facility] Low Risk <150 [facility] [id number] High Risk 200-499 Very High Risk>=500 Cholesterol Reference Range: Low Risk <200 [id number] High Risk>240 HDL Cholesterol Reference Range: Low Risk >=60 High Risk <40 LDL Cholesterol Reference Range: Optimal<100 Near [id number] [id number] [id number] Very High >=190 Performing Organization Address City/[facility] Phone Number [facility] [address] [place] [address] [facility] * XR chest 1 view portable / bedside (03/19/2018 8:43 PM CDT) Narrative Performed At FINAL REPORT GE [facility] RAD, CHEST, 1 VIEW, NON DEPT INDICATION: chest pain COMPARISON: None TECHNIQUE: Single frontal view of the chest. IMPRESSION: Cardiomediastinal silhouette within normal limits. No overt consolidative or congestive change. No acute osseous abnormality. Signed: Luba Lund MD Report Verified Date/Time:03/19/2018 21:33:48 Reading Location: [address] Reading Room Procedure Note Interface, External Ris In - 03/19/2018 9:36 PM CDT FINAL REPORT RAD, CHEST, 1 VIEW, NON DEPT INDICATION: chest pain COMPARISON: None TECHNIQUE: Single frontal view of the chest. IMPRESSION: Cardiomediastinal silhouette within normal limits. No overt consolidative or congestive change. No acute osseous abnormality. Signed: Luba Lund MD Report Verified Date/Time: 03/19/2018 21:33:48 Reading Location: [address] Reading Room Performing Organization Address City/[facility] Phone Number GE RIS * PT/PTT (03/19/2018 6:43 PM CDT) Protime 13.2 11.7 - 14.7 seconds [facility] INR 1.0 <=5.9 [facility] PTT 25.3 22.5 - 36.0 seconds [facility] Specimen Blood - Arm, Left Narrative Performed At RECOMMENDED COUMADIN/WARFARIN INR THERAPY RANGES [facility] STANDARD DOSE: 2.0 - 3.0 Includes: PROPHYLAXIS for venous thrombosis, [facility] systemic embolization; TREATMENT for venous thrombosis and/or pulmonary embolus. HIGH RISK: Target INR is 2.5-3.5 for patients with mechanical heart valves. Performing Organization Address City/State/Zipcode Phone Number [facility] [address] [place] [address] [facility] * B-type Natriuretic Factor (BNP) (03/19/2018 6:43 PM CDT) BNP 50 0 - 100 pg/mL [facility] Specimen Blood - Arm, Left Performing Organization Address City/[facility]/Zipcode Phone Number [facility] [address] [place], [place] [phone] [facility]ENTER after 08/15/2017 Insurance Payer Benefit Subscriber ID Type Phone Address Plan / Group [employer] - [employer] CARE KI TAYLOR xxxxxxxxxxx HMO/POS HMO/POS OPEN ACCESS Advance Directives For more information, please contact: [address] [address] Date Inactivated Comments Code Status Date Activated 03/21/2018 5:25 PM Full Code 03/20/2018 2:15 AM This code status was determined by: Patient
[2018-08-16] MEDS: CARVEDILOL 12.5 MG TAB PO SCH ×2 (10:40→17:05)
[2018-08-16] MEDS: METOPROLOL TARTRATE 50 MG TAB PO SCH (10:40)
[2018-08-16] MEDS: HYDRALAZINE HCL 25 MG TAB PO SCH ×3 (10:40→21:00)
[2018-08-16] MEDS: NIFEDIPINE CR 30 MG TAB PO SCH ×2 (10:40→15:30)
--- NOTE | 2018-08-16 12:11 | NUR ---
DR. ACOSTA HERE TO EVAL PT. ORDERED GIVEN FOR STAT CXR, PLACE PT ON RA TO MONITOR RA SATS. PT CAN BE DOWN GRADED TO TELE FROM IMCU.
[2018-08-16] MEDS ORDERED: IPRATROPIUM BROMIDE 0.02% 2.5 ML NEB NEB PRN (12:15)
[2018-08-16] MEDS ORDERED: LEVALBUTEROL HCL SOLN NEBU 0.63 MG/3 ML NEB INH PRN (12:15)
--- NOTE | 2018-08-16 12:15 | NUR ---
PT'S RA SATS NOW 100%. PT DID SPEAK TO DR. ACOSTA ABOUT THOROCENTESIS. PT AWARE STAT CXR ORDERED AND PENDING RESULTS BEFORE DECIDING IF THOROCENTESIS IS STILL NEEDED.
--- NOTE | 2018-08-16 12:17 | NUR ---
LUNCH TRAY AT BEDSIDE AND PT HAS BEEN REPOSITIONED COMFORT.
[2018-08-16] MEDS: DOXYCYCLINE HYCLATE TABLET 100 MG TAB PO SCH ×2 (12:50→21:01)
--- NOTE | 2018-08-16 13:08 | Diagnostic Imaging Report ---
EXAM: XR CHEST 1 VIEW DATE: 08/16/2018 12:07 PM INDICATION: CHF, COPD, pneumonia COMPARISON: 08/15/2018 CT, 08/14/2018 chest x-ray, no reports available FINDINGS: Lines and Tubes: None Heart and Mediastinum: Enlarged. Lungs and Pleura: Small right and moderate left effusion with asymmetric to the left bibasilar opacities. Bones and Soft Tissues: No acute findings. IMPRESSION: 1. Volume overload with asymmetric to the left effusions. Superimposed atelectasis and/or pneumonia. Signed by: Dr. Jaime Shannon MD on 08/16/2018 1:04 PM
--- NOTE | 2018-08-16 14:42 | Progress Note ---
DATE: August 16, 2018 CARDIOLOGY PROGRESS NOTE SUBJECTIVE: Patient feels much better. Denies any shortness of breath or chest pain. Her swelling has improved. OBJECTIVE VITAL SIGNS: Temperature is 98.2, heart rate is 76, respirations are 18, blood pressure is 155/64, oxygen saturation is 100% on 4 L nasal cannula. GENERAL: A well-appearing woman in no acute distress. CARDIOVASCULAR: Regular rate and rhythm. No murmurs. LUNGS: Clear to auscultation. ABDOMEN: Soft and nontender. EXTREMITIES: Two plus pulses. CARDIOVASCULAR MEDICATIONS: Reviewed. LABORATORY DATA: Reviewed. IMAGING DATA: Reviewed. Telemetry monitoring revealed normal sinus rhythm. IMPRESSION 1. Esngg-sv-vhocslx diastolic heart failure. 2. Hypertension. 3. Pulmonary edema. 4. Hypoxia. 5. Pleural effusion. RECOMMENDATIONS: Patient overall appears improved on current medical regimen. Continue intravenous diuretics. Will need better blood pressure control. Will start her on calcium channel raffy. Will try to avoid nephrotoxic agents at this point in time. Echocardiogram has been ordered and will review this once it has been completed. Job#: [id number] SYLVAIN
--- NOTE | 2018-08-16 14:44 | NUR ---
REPEAT CXR DONE AND RESULTED. CALL PLACED TO DR. ACOSTA TO CONFIRM IF THORACENTESIS IS TO BE DONE OR NOT. PENDING RETURN CALL AT THIS TIME. PT AWARE OF THIS.
[2018-08-16] MEDS: ONDANSETRON HCL 4 MG ORAL DISINTEGRATING TAB PO PRN ×2 (14:55→21:02)
[2018-08-16] MEDS ORDERED: HYDRALAZINE HCL 100 MG TABLET PO SCH (15:00)
[2018-08-16] MEDS ORDERED: HYDRALAZINE HCL 25 MG TAB PO SCH ×2 (15:00→21:00)
--- NOTE | 2018-08-16 15:03 | NUR ---
MEDICATED PT FOR N/V ORDERED. PT TO BE MOVED INTO A CLOSED ROOM FOR COMFORT AND TO BE ABLE TO VIEW TV. PT AWARE STILL PENDING ROOM ASSIGNMENT AT THIS TIME.
--- NOTE | 2018-08-16 15:05 | NUR ---
SPOKE TO DR. ACOSTA REGARDING REPEAT CXR RESULTS. THORACENTESIS CANCELLED, REPEAT CXR ORDERED FOR AM, LASIX INCREASED TO [address] ACOSTA. ORDERS IN EMR.
[2018-08-16] MEDS: ISOSORBIDE DINITRATE 20 MG TAB PO SCH ×2 (15:30→21:01)
--- NOTE | 2018-08-16 15:45 | NUR ---
SEBAS FROM PT HERE TO EVAL PT. PT UP AMBULATING IN THE HALLWAY USING A WALKER AND HAS STEADY GAIT. NO SOB NOTED WITH AMBULATION. DR. ACOSTA DID SEE PT WHILE SHE WAS AMBULATING IN HALLWAY.
[2018-08-16] MEDS: INSULIN LISPRO 100 UNIT/1 ML 3ML VIAL SQ SCH ×2 (16:30→21:00)
[2018-08-16] MEDS: ENOXAPARIN SOD INJ 40 MG/0.4 ML SYR SC SCH (17:10)
[2018-08-16] MEDS ORDERED: ACETAMINOPHEN 325 MG TAB PO PRN (17:15)
[2018-08-16 18:00] VITALS: BP 122/59
--- NOTE | 2018-08-16 18:00 | NUR ---
Received patient from ER in a hospital bed. Patient settled in room and shown the call light and the bathroom. Her is at her bedside for support. Patient instructed to call if she needs assistance.
--- NOTE | 2018-08-16 19:35 | NUR ---
PATIENT RECEIVED. PATIENT RESTING IN BED, AAX3. RESP EVEN AND UNLABORED. NO ACUTE DISTRESS NOTED AT THIS TIME. AT BED SIDE. CALL LIGHT WITHIN REACH. INSTRUCT TO CALL FOR ASSISTANCE. BED LOW/LOCKED. CONTINUE TO MONITOR CLOSELY
--- NOTE | 2018-08-16 20:40 | NUR ---
PATIENT REQUESTED TO HAVE GABAPENTIN. SPOKE TO DR ACOSTA. NEW ORDER RECEIVED
[2018-08-16 21:00] VITALS: BP 108/50
[2018-08-16] MEDS: TEMAZEPAM 15 MG CAP PO SCH (21:01)
[2018-08-16 21:05] VITALS: BP 108/50
[2018-08-16] MEDS: GABAPENTIN 300 MG CAP PO SCH (21:33)
[2018-08-17] VITALS (9 sets, daily range): BP systolic 108–146; BP diastolic 50–67
[2018-08-17 05:05] LABS: BASOPHILS # (AUTO) 0.1 (0.0-0.1); BASOPHILS % 0.7 % (0.0-1.0); EOSINOPHILS # (AUTO) 0.4 (0.0-0.4); EOSINOPHILS % 5.2 % (0.0-6.0); HEMATOCRIT 29.7 % (34.2-44.1); HEMOGLOBIN 9.1 g/dL (12.0-16.0); LYMPHOCYTES # (AUTO) 2.1 (1.0-3.2); LYMPHOCYTES % 29.3 % (18.0-39.1); MEAN CORPUSCULAR HEMOGLOBIN 26.3 pg (28-32); MEAN CORPUSCULAR HGB CONC 30.6 g/dL (31-35); MEAN CORPUSCULAR VOLUME 85.8 fL (81-99); MONOCYTES # (AUTO) 0.8 (0.2-0.8); MONOCYTES % 11.6 % (4.4-11.3); NEUTROPHILS # (AUTO) 3.8 (2.1-6.9); NEUTROPHILS % 53.1 % (38.7-80.0); PLATELET COUNT 252 x10e3/uL (140-360); RED BLOOD COUNT 3.46 x10e6/uL (3.6-5.1); RED CELL DISTRIBUTION WIDTH 14.7 % (11.7-14.4)
[2018-08-17 05:22] LABS: ANION GAP 14.4 mmol/L (8-16); CALCIUM 9.4 mg/dL (8.4-10.2); CREATININE, SERUM 1.64 mg/dL (0.57-1.11); MAGNESIUM 1.6 MG/DL (1.3-2.1); POTASSIUM 3.4 mmol/L (3.5-5.1)
--- NOTE | 2018-08-17 06:40 | Diagnostic Imaging Report ---
CHEST 2 VIEWS, Technique: CHEST 2 VIEWS Comparison: 08/16/2018 Clinical history: Shortness of breath DISCUSSION: Stable mildly enlarged cardiac silhouette. Persistent small bilateral effusions, left greater than right, with associated atelectasis and/or edema. IMPRESSION: Persistent small bilateral effusions with associated atelectasis and/or edema. Signed by: Dr Aimee Ibrahim MD on 08/17/2018 6:37 AM
[2018-08-17] MEDS: INSULIN LISPRO 100 UNIT/1 ML 3ML VIAL SQ SCH ×3 (07:30→21:00)
[2018-08-17] MEDS: NIFEDIPINE CR 30 MG TAB PO SCH (09:00)
[2018-08-17] MEDS: DOCUSATE SODIUM 100 MG CAP PO SCH (09:00)
[2018-08-17] MEDS: GABAPENTIN 300 MG CAP PO SCH ×3 (09:00→21:28)
[2018-08-17] MEDS: ISOSORBIDE DINITRATE 20 MG TAB PO SCH ×3 (09:00→21:28)
[2018-08-17] MEDS: FUROSEMIDE INJ 10 MG/ML 4 ML VIAL IV SCH (09:00)
[2018-08-17] MEDS: DOXYCYCLINE HYCLATE TABLET 100 MG TAB PO SCH ×2 (09:00→21:28)
[2018-08-17] MEDS: CARVEDILOL 12.5 MG TAB PO SCH ×2 (09:00→16:00)
[2018-08-17] MEDS: ASPIRIN 81 MG CHEW TAB PO SCH (09:00)
[2018-08-17] MEDS: HYDRALAZINE HCL 25 MG TAB PO SCH ×3 (09:00→21:28)
--- NOTE | 2018-08-17 10:20 | NUR ---
Regulatory Affairs Specialist to bedside to discuss plan of care with patient/family. CM/SW role and care transitions discussed. Anticipated discharge plan discussed along with duration of care. CM/SW discussed patients right to make decisions in care. CM/SW work hours given. Patient lives: with her [facility] Admit/Transfer: thru ED, from home POA/Emergency contact: Owen at [phone] Current/Previous Home Health: none at this time; had home health previously, set up by [facility]; pt does not remember the name of the company PCP/Follow-up Care: Dr. Huan Sotelo with [facility] Current/Previous DME: uses a walker as needed, but usually does not use any equipment daily. Other Services: none Employment Status: unemployed Areas of Concerns: CHF, pneumonia Referral Needs: may need home health for CHF monitoring Education Needs: CHF education IMM/UP given and signed (if applicable): none at this time Goal for discharge: home; her will provide transportation CM/SW left business card at the bedside with contact information. Name and number was also written on the patients whiteboard. Patient verbalized understanding of discussion. CM will follow-up with ongoing discharge and transition of care needs.
--- OUTSIDE RECORDS SUMMARY | 2018-08-17 11:26 | XMS REPORT | Clinical Summary ---
Author Author MAGDY [facility] Address Unknown Phone Unavailable Care Team Providers Care Manager Code Name Role Phone Sharpless PCP Allergies No [...] Emergency General Internal Medicine - 03/21/2018 after 08/16/2017 Social History Date Tobacco Use Types Packs/Day [...] ms QTC Calculatio n(Bazett) 465 ms P [place] 67 degrees R [place] 36 degrees T [place] 106 degrees Normal sinus rhythm T wave [...] ms QTC Calculatio n(Bazett) 469 ms P [place] 70 degrees R [place] 62 degrees T [place] 103 degrees Normal sinus rhythm T wave [...] ms QTC Calculatio n(Bazett) 474 ms P [place] 72 degrees R [place] 86 degrees T [place] 87 degrees Normal sinus rhythm Nonspecifi c [...] ms QTC Calculatio n(Bazett) 491 ms P [place] 74 degrees R [place] 81 degrees T [place] 119 degrees Normal sinus rhythm Right atrial [...] 12-LEAD Routine 03/19/2018 6:23 PM CDT after 08/16/2017 Results * RHYTHM STRIP - SCAN (03/23/2018 12:00 PM CDT) Narrative Performed At * POC-Glucose meter (03/21/2018 12:39 PM CDT) Only the most recent of 7 results within the time period is included. POC-Glucose Meter 168 (H)Comment: TESTED AT 70 - 110 mg/dL [facility] [address] [facility] [id number] Specimen Blood Performing Organization Address City/State/Zipcode Phone Number [facility] [address] [place] [address] MEDICAL CENTER * ECG 12 lead (03/21/2018 6:32 AM CDT) Only the most recent of 3 results within the time period is included. Narrative Performed At Ventricular Rate 68 BPM GE MUSE Atrial Rate 68 BPM P-R Interval 158 ms QRS Duration 90 ms Q-T Interval 442 ms QTC Calculation(Bazett) 469 ms P [place] 70 degrees R [place] 62 degrees T [place] 103 degrees Normal sinus rhythm T wave [...] 442 ms QTC Calculation(Bazett) 469 ms P [place] 70 degrees R [place] 62 degrees T [place] 103 degrees Normal sinus rhythm T wave abnormality, consider lateral ischemia Abnormal ECG When compared with ECG of 20-MAR-2018 06:26, ST elevation now present in Inferior leads Confirmed by MD STARKEY JOSEPH P ([id number]) on 03/22/2018 7:49:24 AM Performing Organization Address City/State/[facility] Phone Number GE MUSE * Magnesium (03/21/2018 5:17 AM CDT) Only the most recent of 3 results within the time period is included. Magnesium 1.6 1.6 - 2.6 mg/dL [facility] Specimen Blood Performing Organization Address City/[facility] Phone Number [facility] [address] [place] [address] [phone] [place] [address] * Basic metabolic panel (03/21/2018 5:17 AM CDT) Only the most recent of 3 results within the time period is included. Sodium 138 136 - 145 meq/L [facility] Potassium 4.0 3.5 - 5.1 meq/L [facility] Chloride 108 (H) 98 - 107 meq/L [facility] CO2 21 (L) 22 - 29 meq/L [facility] BUN 30 (H) 7 - 21 mg/dL [facility] Creatinine 1.04 0.57 - 1.25 mg/dL [facility] Glucose 190 (H) 70 - 105 mg/dL [facility] Calcium 8.8 8.4 - 10.2 mg/dL [facility] EGFR 53Comment: ESTIMATED GFR IS mL/min/1.73 sq m [facility] NOT ACCURATE CREATININE [facility] CLEARANCE IN PREDICTING GLOMERULAR FILTRATION RATE. ESTIMATED GFR IS NOT APPLICABLE FOR DIALYSIS PATIENTS. Specimen Blood Performing Organization Address City/[facility] Phone Number [facility] [address] [place], [place] [phone] [facility] * Troponin I (03/20/2018 4:05 PM CDT) Only the most recent of 2 results within the time period is included. Troponin I 0.01 0.00 - 0.03 ng/mL [facility] Specimen Blood - Arm, Right Narrative Performed At Troponin I (TnI) levels must be interpreted in the context of the presenting [facility] symptoms and the clinical findings. Elevated TnI levels indicate myocardial [facility] damage, but are not specific for ischemic heart disease. Elevated TnI levels are seen in patients with other cardiac conditions (including myocarditis and congestive heart failure), and slight TnI elevations occur in patients with other conditions, including sepsis, renal failure, acidosis, acute neurological disease, and persistent tachyarrhythmia. Performing Organization Address [facility] Phone Number [facility] [address] [place], [place] [phone] [facility] * Urinalysis w/ Microscopic (03/20/2018 6:14 AM CDT) Color, UA Yellow [facility] Clarity, UA Clear [facility] Specific [place], UA 1.017 1.001 - 1.035 [facility] pH, UA 6.0 5.0 - 8.0 [facility] Protein, UA 600 mg/dL (A) Negative [facility] Glucose, UA >1000 mg/dL (A) Negative [facility] Ketones, UA 10 mg/dL (A) Negative [facility] Bilirubin, UA Negative Negative [facility] Blood, UA Negative Negative [facility] Nitrite, UA Negative Negative [facility] Leukocytes, UA Negative Negative [facility] Urobilinogen, UA 0.2 0.2 - 1.0 mg/dL [facility] RBC, UA 1 /HPF [facility] WBC, UA 22 /HPF [facility] Mucus Occasional [facility] Squam Epithel, UA 12 /HPF [facility] Hyaline Casts, UA 29 /LPF [facility] Specimen Source Urine, Voided [facility] Specimen Urine - Urine, Voided Performing Organization Address City/State/Zipcode Phone Number [facility] [address] [place] [address] [facility] * CBC with platelet count + automated diff (03/20/2018 5:51 AM CDT) Only the most recent of 2 results within the time period is included. WBC 9.6 3.5 - 10.5 K/L [facility] RBC 5.18 3.93 - 5.22 M/L [facility] Hemoglobin 13.9 11.2 - 15.7 GM/DL [facility] Hematocrit 44.0 34.1 - 44.9 % [facility] MCV 84.9 79.4 - 94.8 fL [facility] MCH 26.8 25.6 - 32.2 pg [facility] MCHC 31.6 (L) 32.2 - 35.5 GM/DL [facility] RDW 13.1 11.7 - 14.4 % [facility] Platelets 285 150 - 450 K/CU MM [facility] MPV 10.0 9.4 - 12.3 fL [facility] nRBC 0 0 - 0 /100 WBC [facility] % Neutros 54 % [facility] % Lymphs 38 % [facility] % Monos 6 % [facility] % Eos 1 % [facility] % Baso 1 % [facility] # Neutros 5.22 1.56 - 6.13 K/L [facility] # Lymphs 3.61 1.18 - 3.74 K/L [facility] # Monos 0.61 (H) 0.24 - 0.36 K/L [facility] # Eos 0.08 0.04 - 0.36 K/L [facility] # Baso 0.05 0.01 - 0.08 K/L [facility] Immature 0 0 - 1 % [facility] Granulocytes-[facility] Specimen Blood Performing Organization Address City/[facility]/Zipcode Phone Number [address] [address] [facility] * Prothrombin time/INR (03/20/2018 5:51 AM CDT) Protime 13.2 11.7 - 14.7 seconds [facility] INR 1.0 <=5.9 [facility] Specimen Blood Narrative Performed At RECOMMENDED COUMADIN/WARFARIN INR THERAPY RANGES [facility] STANDARD DOSE: 2.0 - 3.0 Includes: PROPHYLAXIS for venous thrombosis, [facility] systemic embolization; TREATMENT for venous thrombosis and/or pulmonary embolus. HIGH RISK: Target INR is 2.5-3.5 for patients with mechanical heart valves. Performing Organization Address City/State/Zipcode Phone Number [place] [phone] [place] [address] [facility] * Hepatic function panel (03/20/2018 5:51 AM CDT) Protein, Total 6.3 6.0 - 8.3 gm/dL [facility] Albumin 3.5 3.5 - 5.0 g/dL [facility] Total Bilirubin 0.5 0.2 - 1.2 mg/dL [facility] Bilirubin, Direct 0.2 0.1 - 0.5 mg/dL [facility] Alkaline Phosphatase 94 40 - 150 U/L [facility] AST 10 5 - 34 U/L [facility] ALT 13 6 - 55 U/L [facility] Specimen Blood Performing Organization Address City/[facility] Phone Number [facility] [address] [place] [address] [facility] * Lipid panel (03/20/2018 5:51 AM CDT) Triglycerides 219 mg/dL [facility] Cholesterol 190 mg/dL [facility] HDL 44 mg/dL [facility] LDL Calculated 102 mg/dL [facility] Specimen Blood Narrative Performed At Triglyceride Reference Range: [facility] Low Risk <150 [facility] [id number] High Risk 200-499 Very High Risk>=500 Cholesterol Reference Range: Low Risk <200 [id number] High Risk>240 HDL Cholesterol Reference Range: Low Risk >=60 High Risk <40 LDL Cholesterol Reference Range: Optimal<100 Near [id number] Ceptaqhbvr322-990 Sogv913-112 Very High >=190 Performing Organization Address City/[facility] Phone Number [facility] [address] [place] [address] [facility] * XR chest 1 view portable / bedside (03/19/2018 8:43 PM CDT) Narrative Performed At FINAL REPORT [facility] RAD, CHEST, 1 VIEW, NON DEPT INDICATION: chest pain COMPARISON: None TECHNIQUE: Single frontal view of the chest. IMPRESSION: Cardiomediastinal silhouette within normal limits. No overt consolidative or congestive change. No acute osseous abnormality. Signed: Luba Lund MD Report Verified Date/Time:03/19/2018 21:33:48 Reading Location: [address] Reading Room Procedure Note Interface, External Ris In - 03/19/2018 9:36 PM CDT FINAL REPORT RAD, CHEST, 1 VIEW, NON DEPT INDICATION: chest pain COMPARISON: None TECHNIQUE: Single frontal view of the chest. IMPRESSION: Cardiomediastinal silhouette within normal limits. No overt consolidative or congestive change. No acute osseous abnormality. Signed: Luba Lund MD Report Verified Date/Time: 03/19/2018 21:33:48 Reading Location: [address] Reading Room Performing Organization Address City/[facility] Phone Number GE RIS * PT/PTT (03/19/2018 6:43 PM CDT) Protime 13.2 11.7 - 14.7 seconds [facility] INR 1.0 <=5.9 [facility] PTT 25.3 22.5 - 36.0 seconds [facility] Specimen Blood - Arm, Left Narrative Performed At RECOMMENDED COUMADIN/WARFARIN INR THERAPY RANGES [facility] STANDARD DOSE: 2.0 - 3.0 Includes: PROPHYLAXIS for venous thrombosis, [facility] systemic embolization; TREATMENT for venous thrombosis and/or pulmonary embolus. HIGH RISK: Target INR is 2.5-3.5 for patients with mechanical heart valves. Performing Organization Address City/State/Zipcode Phone Number [facility] [address] [place] [address] [facility] * B-type Natriuretic Factor (BNP) (03/19/2018 6:43 PM CDT) BNP 50 0 - 100 pg/mL [facility] Specimen Blood - Arm, Left Performing Organization Address City/[facility]/Zipcode Phone Number [facility] [address] [place], [place] [phone] [facility] after 08/16/2017 Insurance Payer Benefit Subscriber ID Type Phone Address Plan / Group [employer] - [employer] CARE KI TAYLOR xxxxxxxxxxx HMO/POS HMO/POS OPEN ACCESS Advance Directives For more information, please contact: [address] [address] Date Inactivated Comments Code Status Date Activated 03/21/2018 5:25 PM Full Code 03/20/2018 2:15 AM This code status was determined by: Patient
[2018-08-17] MEDS ORDERED: POTASSIUM CHLORIDE 20 MEQ TAB CR PO STA (12:26)
[2018-08-17] MEDS ORDERED: MAGNESIUM SULFATE 2GM/50ML 50 ML IV ONE (12:30)
[2018-08-17] MEDS ORDERED: IPRATROPIUM BROMIDE 0.02% 2.5 ML NEB NEB PRN (13:00)
[2018-08-17] MEDS ORDERED: ACETAMINOPHEN 325 MG TAB PO PRN (13:00)
[2018-08-17] MEDS ORDERED: ONDANSETRON HCL 4 MG ORAL DISINTEGRATING TAB PO PRN (13:00)
[2018-08-17] MEDS ORDERED: ACETAMINOPHEN/CODEINE 300MG - 30MG TAB PO PRN (13:00)
[2018-08-17] MEDS ORDERED: LEVALBUTEROL HCL SOLN NEBU 0.63 MG/3 ML NEB INH PRN (13:00)
--- NOTE | 2018-08-17 14:02 | NUR ---
Rounds by attending and orders in place to D/C rizzo cath, KCL and Mg supplements running at this time and patient on room air and O2Sats at 92%RA, no resp distress, will monitor as call light within reach
--- NOTE | 2018-08-17 14:13 | Progress Note ---
DATE: CARDIOLOGY PROGRESS NOTE SUBJECTIVE: Patient overall feels better. Still with mild shortness of breath. Currently, on oxygen. OBJECTIVE VITAL SIGNS: Temperature is 97.9, heart rate is 80, respirations are 18, blood pressure is 129/61, oxygen saturation 96% on 2 L nasal cannula. GENERAL: Well-appearing. No apparent distress. LUNGS: Scattered rales at bases. CARDIOVASCULAR: Regular rate and rhythm. ABDOMEN: Soft and nontender. EXTREMITIES: Trace edema. CARDIOVASCULAR MEDICATIONS: Reviewed. LABORATORY DATA: Reviewed. White blood cell count 7.16. Creatinine 1.64. Chest x-ray shows persistent small bilateral effusions associated with atelectasis and/or edema. IMPRESSION 1. Ofbiz-du-zfwvntf diastolic heart failure. 2. Hypertension. 3. Pulmonary edema. 4. Pleural effusions. 5. Hypoxia. RECOMMENDATIONS: Patient continues to diurese well and will continue intravenous Lasix for at least 1 more day. Continue all other current cardiovascular medications. Her blood pressure is better controlled after initiation of Procardia. Will continue to closely monitor on telemetry and her hemodynamically status. Job#: [id number] [place]
[2018-08-17] MEDS ORDERED: FUROSEMIDE INJ 10 MG/ML 4 ML VIAL IV SCH (17:00)
[2018-08-17] MEDS: ENOXAPARIN SOD INJ 40 MG/0.4 ML SYR SC SCH (17:37)
--- NOTE | 2018-08-17 18:52 | NUR ---
Report given to outgoing nurse and patient reported voided and had a BM post removal of Varela. Call light within reach
[2018-08-17] MEDS: TEMAZEPAM 15 MG CAP PO SCH (23:26)
[2018-08-18] VITALS (8 sets, daily range): BP systolic 117–152; BP diastolic 56–67
[2018-08-18 05:15] LABS: BASOPHILS # (AUTO) 0.1 (0.0-0.1); BASOPHILS % 0.8 % (0.0-1.0); EOSINOPHILS # (AUTO) 0.3 (0.0-0.4); EOSINOPHILS % 4.2 % (0.0-6.0); HEMATOCRIT 29.9 % (34.2-44.1); HEMOGLOBIN 9.1 g/dL (12.0-16.0); LYMPHOCYTES # (AUTO) 2.3 (1.0-3.2); LYMPHOCYTES % 35.4 % (18.0-39.1); MEAN CORPUSCULAR HEMOGLOBIN 25.9 pg (28-32); MEAN CORPUSCULAR HGB CONC 30.4 g/dL (31-35); MEAN CORPUSCULAR VOLUME 84.9 fL (81-99); MONOCYTES # (AUTO) 0.7 (0.2-0.8); MONOCYTES % 11.1 % (4.4-11.3); NEUTROPHILS # (AUTO) 3.1 (2.1-6.9); NEUTROPHILS % 48.2 % (38.7-80.0); PLATELET COUNT 251 x10e3/uL (140-360); RED BLOOD COUNT 3.52 x10e6/uL (3.6-5.1); RED CELL DISTRIBUTION WIDTH 14.9 % (11.7-14.4)
[2018-08-18 05:39] LABS: CALCIUM 9.2 mg/dL (8.4-10.2); CREATININE, SERUM 1.72 mg/dL (0.57-1.11); MAGNESIUM 2.1 MG/DL (1.3-2.1)
[2018-08-18] MEDS: INSULIN LISPRO 100 UNIT/1 ML 3ML VIAL SQ SCH ×4 (07:30→21:30)
[2018-08-18] MEDS: NIFEDIPINE CR 30 MG TAB PO SCH (08:34)
[2018-08-18] MEDS: DOXYCYCLINE HYCLATE TABLET 100 MG TAB PO SCH (08:34)
[2018-08-18] MEDS: CARVEDILOL 12.5 MG TAB PO SCH ×2 (08:35→17:43)
[2018-08-18] MEDS: ISOSORBIDE DINITRATE 20 MG TAB PO SCH ×3 (08:35→21:29)
[2018-08-18] MEDS: GABAPENTIN 300 MG CAP PO SCH ×3 (08:35→21:29)
[2018-08-18] MEDS: ASPIRIN 81 MG CHEW TAB PO SCH (08:35)
[2018-08-18] MEDS: HYDRALAZINE HCL 25 MG TAB PO SCH ×3 (08:36→21:29)
[2018-08-18] MEDS: ENOXAPARIN SOD INJ 40 MG/0.4 ML SYR SC SCH (17:43)
--- NOTE | 2018-08-18 19:20 | NUR ---
RECEIVED PATIENT AAOX4 RESTING IN BED, STABLE CONDITION. DENIES PAIN, DENIES ANY NEEDS AT THIS TIME. BED LOCKED AND IN LOWEST POSITION, CALL LIGHT WITHIN EASY REACH.
[2018-08-18] MEDS: TEMAZEPAM 15 MG CAP PO SCH (23:27)
[2018-08-19 00:11] VITALS: BP 124/57
[2018-08-19 06:06] LABS: ANION GAP 13.9 mmol/L (8-16); CALCIUM 9.3 mg/dL (8.4-10.2); CREATININE, SERUM 1.4 mg/dL (0.57-1.11); POTASSIUM 3.9 mmol/L (3.5-5.1)
[2018-08-19 06:09] VITALS: BP 147/68
[2018-08-19] MEDS: INSULIN LISPRO 100 UNIT/1 ML 3ML VIAL SQ SCH ×3 (07:30→17:03)
[2018-08-19 07:59] VITALS: BP 152/72
[2018-08-19 08:00] VITALS: BP 152/72
[2018-08-19] MEDS: HYDRALAZINE HCL 25 MG TAB PO SCH ×2 (09:27→16:01)
[2018-08-19] MEDS: CARVEDILOL 12.5 MG TAB PO SCH ×2 (09:27→16:57)
[2018-08-19] MEDS: NIFEDIPINE CR 30 MG TAB PO SCH (09:28)
[2018-08-19] MEDS: ISOSORBIDE DINITRATE 20 MG TAB PO SCH ×2 (09:28→16:01)
[2018-08-19] MEDS: ASPIRIN 81 MG CHEW TAB PO SCH (09:30)
[2018-08-19] MEDS: GABAPENTIN 300 MG CAP PO SCH ×2 (09:30→16:01)
[2018-08-19 12:00] VITALS: BP 138/72
[2018-08-19 16:00] VITALS: BP 130/61
--- NOTE | 2018-08-19 16:15 | Discharge Summary ---
PRIMARY CARE DOCTOR: Dr. Abram Brown with [facility]. FINAL DIAGNOSIS: Acute systolic congestive heart failure. SECONDARY DIAGNOSES 1. Uncontrolled hypertension, better. 2. Acute renal failure due to overdiuresis, recovering. 3. Acute respiratory failure, resolved. 4. Possible pneumonia, status post doxycycline. 5. Diabetes. CONSULTANTS: Dr. Conte, cardiology. PROCEDURES/STUDIES PERFORMED 1. Echocardiogram. 2. Chest computerized tomography. HISTORY: Per H and P. HOSPITAL COURSE: The patient was aggressively diuresed with IV Lasix. The patient did well. Currently, the patient was able to ambulate in the hallway on room air. Initially, the patient was on BiPAP. However, we did over-diurese her. Her creatinine bumped and IV Lasix was stopped, and now her creatinine is recovering. The patient was told to restart her oral Lasix tomorrow at home. Since her creatinine is better now, the patient can restart her metformin as well. In regards to her uncontrolled hypertension, nifedipine was doubled. Her hydralazine was doubled and Isordil was added as well. The patient was seen and examined today. CONDITION ON DISCHARGE: Improved. DISCHARGE MEDICATIONS: Please see medication reconciliation form. It took 32 minutes total to discharge this patient. TACHO ACOSTA M.D. Job#: [id number] [place] cc:ABRAM BROWN M.D.
--- NOTE | 2018-08-19 16:49 | NUR ---
Discontinuing skilled physical therapy services since patient is independent/Mod I in functional mobility. Thank you. Addendum: 08/19/18 at 1652 by Fabio dobson PT Amended: Links added.
--- NOTE | 2018-08-19 16:53 | Progress Note ---
DATE: CARDIOLOGY PROGRESS NOTE SUBJECTIVE: Patient feeling much better. Denies any shortness of breath or chest pain. Also denies dizziness or near syncope symptoms. OBJECTIVE VITAL SIGNS: Temperature 97.9, heart rate is 81, respirations are 20, blood pressure is 131/60, oxygen saturation 96% on room air. GENERAL: Well-appearing, well-built, no apparent distress. LUNGS: Mildly diminished breath sounds at the bilateral bases. ABDOMEN: Soft, nontender. EXTREMITIES: Trace edema. CARDIOVASCULAR: Regular rate and rhythm. CARDIOVASCULAR MEDICATIONS: Reviewed. LABORATORY DATA: Reviewed. Creatinine improved to 1.4. Telemetry monitoring revealed normal sinus rhythm with rare premature ventricular complexes. A 2D echocardiogram showed left ventricular ejection fraction of 55% to 60%. IMPRESSIONS 1. Qcdzq-nk-holucpq diastolic heart failure. 2. Pulmonary edema. 3. Pleural effusions. 4. Hypoxia, resolved. 5. Hypertension. RECOMMENDATIONS: Change Lasix to p.o. dosing. Continue all other current cardiovascular medications. Her left ventricular systolic function remains normal. Her creatinine has improved. Continue all other current cardiovascular medications. Job#: [id number] ISAIAS
[2018-08-19] MEDS: ENOXAPARIN SOD INJ 40 MG/0.4 ML SYR SC SCH (16:57)
[2018-08-19] MEDS ORDERED: NIFEDIPINE10 MG PO (17:07)
[2018-08-19] MEDS ORDERED: HYDRALAZINE HCL25 MG PO (17:08)
[2018-08-19] MEDS ORDERED: ISORDIL40 MG PO (17:08)
== END 2018-08-19 18:09 | disposition home or self-care (01) | DRG 291 ==
LOC: ER 21:49 → UNDOADMIN 08-14 03:02 → ERHOLD 08-14 03:02 → UNDOADMIN 08-16 10:19 → ERHOLD 08-16 10:19 → MED/SURG2 08-16 17:40 → ERHOLD 08-16 17:40
PROVIDERS: ADMIT Internal Medicine; ATTEND Internal Medicine
DX: I13.0 Hypertensive heart and chronic kidney disease with heart failure and stage 1 through stage 4 chronic kidney disease, or unspecified chronic kidney disease (principal); J18.9 Pneumonia, unspecified organism; J96.01 Acute respiratory failure with hypoxia; I50.23 Acute on chronic systolic (congestive) heart failure; N17.9 Acute kidney failure, unspecified; N18.9 Chronic kidney disease, unspecified; E11.22 Type 2 diabetes mellitus with diabetic chronic kidney disease; D64.9 Anemia, unspecified; E88.09 Other disorders of plasma-protein metabolism, not elsewhere classified; K59.09 Other constipation; N18.3 Chronic kidney disease, stage 3 (moderate)
CPT/HCPCS: 36415; 36600; 51700; 71045; 71046; 71250; 80048; 80053; 80061; 80076; 81001; 82550; 82553; 82805; 82948; 83036; 83605; 83615; 83735; 83880; 84100; 84443; 84484; 85025; 85379; 85610; 85730; 87040; 87086; 87400; 93005; 93306; 94640; 94660; 96374; 97139; 99284; J1650; J1940; J2060; J2543; J3475